=== PATIENT | female | born 1960 | race Caucasian/White ===

== ENCOUNTER 2024-07-25 09:45 | Outpatient (OUT) | payer BC, SELFPAY ==
--- NOTE | 2024-07-25 10:00 | CA_ITS ---
Patient Name: RADHA DRAKE MR#: [id number] : 1960 Exam Date: 07/25/2024 Ordering Doctor: DR Billy Skelton . ECHOCARDIOGRAM REPORT PROCEDURE: CA ECHO DOPPLER COMPLETE INDICATIONS: Pulmonary hypertension COMPARISON: None. DESCRIPTION: COMPLETE ECHOCARDIOGRAM Real-time transthoracic echocardiography with 2D, M-mode, spectral and color flow Doppler performed. QUALITY: Technical quality was good. LEFT VENTRICLE: Mild dilatation. Mild concentric left ventricular hypertrophy. Normal systolic function. LV EF: Normal left ventricular ejection fraction, (>55%). DIASTOLIC: Grade II diastolic dysfunction. ATRIAL SEPTUM: Visually appears intact. LEFT ATRIUM: Mild chamber dilatation. RIGHT ATRIUM: Normal chamber size. RIGHT VENTRICLE: Mild chamber dilatation. Normal right ventricular systolic function. TRICUSPID VALVE: Normal mobility and thickness. No stenosis with trivial regurgitation. Doppler studies reveal mildly (35-45) elevated right sided pressures. RVSP 43 mmHg MITRAL VALVE: Normal mobility and thickness. No evidence of mitral valve stenosis. There is no mitral annular calcification. Trivial mitral regurgitation. AORTIC VALVE: Normal trileaflet appearance. Thickened aortic valve. Normal leaflet mobility. No evidence of aortic valve stenosis. No aortic regurgitation. AORTIC ROOT: Normal diameter and appearance. Ascending aorta is normal in size. PULMONIC VALVE: Normal thickness and mobility. No stenosis. Trivial regurgitation. PERICARDIUM: No evidence of pericardial effusion. IVC: Collapses with inspirations. IVC is normal in size. PLEURA: CONCLUSION: 1. Mild concentric left ventricular hypertrophy with normal systolic function. LVEF is estimated at 55 to 60%. 2. Mildly dilated right ventricle with normal systolic function. 3. Grade 2 diastolic dysfunction. 4. No significant valvular dysfunction. 5. Mildly elevated right-sided pressures. RVSP is 43 mmHg. 6. No pericardial effusion. Adult Echocardiography Procedure Report Left Ventricle LVEDD (3.7 - 5.6 cm): 5.36 cm LVESD (2.2 - 4.0 cm): 3.90 cm LVIVS thickness (0.6 - 1.2 cm): 1.22 cm LVPW thickness (0.5 - 1.0 cm): 1.16 cm e': 0.05 m/s E - e': 10.56 LVOT Max Gradient: 1.63 mm[Hg] LVOT Area (cm2): 0.64 m/s Peak Velocity (LVOT): 0.64 m/s Mean Velocity (LVOT): 0.43 m/s LVOT Diameter 2.61 cm Left Atrium LA Volume Index (2D A2C): 33.72 ml/m2 Left Atrium Systolic Dimension: 4.45 cm Mitral Valve MV E to A Ratio: 0.99 Mitral Valve A-Wave Peak Velocity: 0.50 m/s Mitral Valve E-Wave Peak Velocity: 0.49 m/s Right Ventricle Aorta AO Root Diam: 3.65 cm Ascending Ao Diam: 2.88 cm Aortic Valve AoV Area (Peak James): 4.04 cm2, 4.04 cm2 AoV Area (VTI): 4.10 cm2, 4.10 cm2 Peak Velocity(Antegrade Flow): 0.84 m/s Peak Gradient(Antegrade Flow): 2.84 mm[Hg] Mean Velocity(Antegrade Flow): 0.56 m/s Mean Gradient(Antegrade Flow): 1.44 mm[Hg] Velocity Time Integral: 19.86 cm Tricuspid Valve Peak Velocity (Regurgitant Flow): 2.54 m/s, 3.16 m/s Pulmonic Valve Mean Gradient: 0.79 mm[Hg] Mean Velocity: 0.43 m/s Peak Velocity: 0.54 m/s, 0.56 m/s Peak Gradient: 1.25 mm[Hg], 1.16 mm[Hg] Right Atrium Right Atrium Systolic Pressure: 36.02 ml, 36.02 ml Dictated by: Nilo Lucero M.D. on 07/26/2024 at 09:33 Approved by: Nilo Lucero M.D. on 07/26/2024 at 09:36
--- NOTE | 2024-07-25 10:38 | US_ITS ---
The [address] [address] Patient Name: RADHA DRAKE MRN: [id number] date: 1960 Sex: F Assigned Patient Location: CARD Current Patient Location: CARD Accession/Order Number: [id number] Exam Date: 07/25/2024 10:40 Report Date: 07/26/2024 13:01 At the request of: JAMES MARK Procedure: US thyroid EXAMINATION: US thyroid HISTORY: Thyroid Nodule COMPARISON: No relevant comparison available. FINDINGS: RIGHT LOBE: Slightly heterogeneous echotexture. Contains a 7 mm TR 3 nodule within superior pole and a 15 mm TR 2 nodule within inferior pole. Lobe size: 3.6 x 1.5 x 1.8 cm LEFT LOBE: Contains an 8 mm TR 3 nodule. Lobe size: 3.3 x 1.2 x 1.3 cm ISTHMUS: Normal size and echotexture. Thickness: 3 mm US/US thyroid IMPRESSION: 1. Small TR 3 nodule within the right lobe (7 mm) and left lobe (8 mm). No additional follow-up recommended at this time. TR3 (mildly suspicious): > 1.5 cm, follow-up ultrasound in 1, 3, and 5 years. > 2.5 cm, fine needle aspiration. TI-RADS 2: Benign nodules. Noticeably benign pattern (0% risk of malignancy) Electronically authenticated by: PRIETO SINGER Date: 07/26/2024 13:01
[2024-07-25 11:08] LABS: Basophils Absolute Auto 0.1 10^3/uL (0.0-0.1); Basophils Percent Auto 1.7 % (0.2-2.0); Eosinophils Absolute Auto 0.3 10^3/uL (0.0-0.7); Hematocrit 43.7 % (36.0-48.0); Hemoglobin 14.4 g/dL (12.0-16.0); Immature Granulocytes Abs Auto 0.01 10^3/uL (0.00-0.03); Immature Granulocytes Pct Auto 0.2 % (0.0-0.5); Lymphocytes Absolute Auto 1.2 10^3/uL (1.2-3.8); Lymphocytes Percent Auto 25.4 % (20.5-60.0); Mean Corpuscular Hemoglobin 32.6 pg (26.7-34.0); Mean Corpuscular Volume 98.9 fL (81.0-99.0); Mean Platelet Volume 9.8 fL (9.5-13.5); Monocytes Absolute Auto 0.6 10^3/uL (0.3-0.8); Monocytes Percent Auto 13.6 % (1.7-12.0); Neutrophils Absolute Auto 2.5 10^3/uL (1.4-6.5); Neutrophils Percent Auto 53.1 % (43.0-75.0); Platelet Count 284 10^3/uL (150-450); Red Blood Count 4.42 10^6/uL (4.20-5.40); White Blood Count 4.6 10^3/uL (4.0-11.0)
[2024-07-25 11:42] LABS: Alanine Aminotransferase 51 U/L (14-59); Albumin Level 3.5 g/dL (3.4-5.0); Alkaline Phosphatase 57 U/L (46-116); Anion Gap 11.6; Aspartate Amino Transferase 31 U/L (15-37); BUN Creatinine Ratio 6.8; Bilirubin Direct 0.1 mg/dL (0.0-0.2); Bilirubin Total 0.4 mg/dL (0.2-1.0); Calcium 9.4 mg/dL (8.5-10.1); Carbon Dioxide 31.5 mmol/L (21.0-32.0); Chloride 106 mmol/L (98-107); Chol HDL Ratio 3.6; Cholesterol 265 mg/dL (<=200); Estimated GFR (African America >60 (>=60 mL/min/1.73m^2); Estimated GFR (Non-African Ame >60 (>=60 mL/min/1.73m^2); Globulin 3.6 g/dL; Glucose 88 mg/dL (74-106); HDL Cholesterol 73 mg/dL (40-60); Potassium 4.1 mmol/L (3.5-5.1); Sodium 145 mmol/L (136-145); Thyroid Stimulating Hormone 1.872 uIU/mL (0.358-3.740); Total Protein 7.1 g/dL (6.4-8.2); Triglycerides 147 mg/dL (<=150); VLDL CHOLESTEROL 29.4 mg/dL
[2024-07-25 11:48] LABS: Estimated Average Glucose 105 mg/dL; Glycohemoglobin A1C 5.3 % (4.5-6.2)
== END 2024-07-25 09:46 | disposition home or self-care (01) ==
LOC: CARD 09:50
PROVIDERS: PCP Family Medicine; Visit Provider Family Medicine
DX: Z00.00 Encounter for general adult medical examination without abnormal findings (principal); I27.20 Pulmonary hypertension, unspecified; E04.1 Nontoxic single thyroid nodule
CPT/HCPCS: 36415; 76536; 80048; 80061; 80076; 83036; 84443; 85025; 93306

== ENCOUNTER 2024-10-04 10:05 | Outpatient (OUT) | payer BC, SELFPAY ==
--- NOTE | 2024-10-04 | MM_ITS ---
Patient Name: RADHA DRAKE MR#: [id number] : 1960 Exam Date: 10/04/2024 Ordering Doctor: DR Billy Skelton . RADIOLOGY REPORT PROCEDURE: MM TOMOSYNTHESIS SCREENING BI COMPARISON: MM TOMOSYNTHESIS SCREENING BI, 01/09/2020. MM TOMOSYNTHESIS SCREENING BI, 06/07/2017. MM TOMOSYNTHESIS SCREENING BI, 02/13/2012. INDICATIONS: SCREENING Calculator Name NCI Breast Cancer Risk Assessment Tool 5 Year Breast Cancer Risk 1.50% Lifetime Breast Cancer Risk 6.80% Personal Breast Cancer No Personal Ovarian Cancer No Treatments None Family Cancers None LOCATION: [facility] BREAST COMPOSITION: There are scattered areas of fibroglandular density. FINDINGS: DIAGNOSTIC CATEGORY 1--NEGATIVE. RIGHT BREAST: No significant suspicious finding. LEFT BREAST: No significant suspicious finding. RECOMMENDATIONS: ROUTINE MAMMOGRAM AND CLINICAL EVALUATION IN 12 MONTHS. PLEASE NOTE: A NORMAL MAMMOGRAM DOES NOT EXCLUDE THE POSSIBILITY OF BREAST CANCER. A CLINICALLY SUSPICIOUS PALPABLE LUMP SHOULD BE BIOPSIED. Dictated by: Shadi Marin DO on 10/04/2024 at 16:02 Approved by: Shadi Marin DO on 10/04/2024 at 16:09
--- OUTSIDE RECORDS SUMMARY | 2024-10-04 10:20 | XMS_ITS | CCD ---
Author Organization [facility] Care Team Providers Care Devil Tender Name Role Phone Unavailable Primary Care Provider Unavailabl e MATTHEW, LINETTE Referring Unavailable MATTHEW, LINETTE Referring Unavailable MATTHEW, LINETTE Referring Unavailable MATTHEW, LINETTE Referring Unavailable MATTHEW, LINETTE Referring Unavailable MATTHEW, LINETTE Referring Unavailable MATTHEW, LINETTE Referring Unavailable MATTHEW, LINETTE Referring Unavailable MATTHEW, LINETTE Referring Unavailable MATTHEW, LINETTE Referring Unavailable MD MORRIS HOUSTON Attending BILLY Luz Primary Care Unavailabl e NADEREBILLY Payne Primary Care Unavailabl e BILLY MARK Consulting UnavailMD MORRIS Dubose Attending Panfilo hunt MISC, DR CONTRERAS Admitting Unavailable MISC, DR CONTRERAS Attending Unavailable DEEDEE, DR BILLY Painter Primary Care Unavailable VALEREICLIF MADRID Admitting Unavailable CLIF PADILLA Attending Unavailable DR BILLY MARK Primary Care Unavailable CLIF PDAILLA Consulting Unavailable CLIF PADILLA Admitting Unavailable VALERIECLIF MADRID Attending Unavailable DEEDEE, DR BILLY Paniter Primary Care Unavailable VALERIECLIF MADRID Consulting Unavailable Unavailable Primary Care Provider UnavailTEVIN Jimenez Attending Unavailable BILLY MARK Primary Care Unavailable Wilner Nolasco Attending Unavailable Wilner Nolasco Admitting Unavailable Elver Valentine Primary Care Unavailable Billy Mark MD Primary Care Provider BILLY MARK Attending Unavailable ELIAS PUTON Attending Unavailable ELIAS UPTON Attending Unavailable BILLY MARK Attending Unavailable Allergies Allergy Classification Reported Allergen(s) Allergy Type Date of Onset Reaction(s) Facility (1 source) Penicillin; Translations: [penicillin] Drug Allergy [facility] Repository (1 source) Sulfonamides (Antibiotic); Translations: [sulfa drugs] Propensity to adverse reactions to drug (disorder) [facility] Repository (12 sources) Penicillin G; Translations: [PENICILLIN G] Drug Allergy 4 Rash [facility] Work Phone: (11 sources) Sulfonamides (Antibiotic) Drug Intolerance 4 Rash, Unknown [facility] (2 sources) Sulfonamides (Antibiotic); Translations: [SULFA (SULFONAMIDE ANTIBIOTICS)] Propensity to adverse reactions to drug (disorder) 4 [facility] (1 source) Penicillins Drug allergy (disorder) 4 [facility] Repository Medications Current Medications Medication Drug Class(es) Dates Sig (Normalized) Sig (Original) hydroCHLOROthiazide 12.5 mg / losartan potassium 50 mg oral tablet (2 sources) Thiazide Diuretic, Angiotensin 2 Receptor Enoc Start: 08-21-2024 take 1 tablet by mouth once daily losartan-hydroCHL OROthiazide (Hyzaar) 50-12.5 MG tablet Indications: Benign essential hypertension (CMS/HCC) Take 1 tablet by mouth Daily 30 tablet 5 08/21/2024 Active Start: 08-21-2024 take 1 tablet by bita th once daily losartan-hydroCHLOROthiazide (Hyzaar) 50-12.5 MG tablet Indications: Benign essential hypertension (CMS/HCC) Take 1 tablet by mouth Daily 30 tablet 5 08/21/2024 Active losartan potassium 25 mg oral tablet (6 sources) Angiotensin 2 Receptor Enoc Start: 07-18-2024 End: 08-21-2024 take 1 tablet by mouth once daily losartan (Cozaar) 25 MG tablet Indications: Benign essential hypertension (CMS/HCC) Take 1 tablet (25 mg) by mouth Daily 30 tablet 5 07/18/2024 08/21/2024 Discontinued Completed/Discontinued Medications Medication Drug Class(es) Dates Sig (Normalized) Sig (Original) fluorouracil 50 mg/ml topical cream (7 sources) Nucleoside Metabolic Inhibitor Start: 09-04-2023 End: 07-18-2024 fluorouracil (Efudex) 5 % cream Indications: Actinic keratosis Apply to directed areas on the Forehead, nose, temples, and cheeks twice a day x 14 days. Dispense 30 day supply but only use for 14 days. 40 g 09/04/2023 07/18/2024 Discontinued metroNIDAZOLE 7.5 mg/ml topical cream (5 sources) Nitroimidazole Antimicrobial Start: 04-22-2024 End: 07-18-2024 metroNIDAZOLE (Metrocream) 0.75 % cream Indications: Other rosacea Apply thin layer to face once daily 45 g 11 04/22/2024 07/18/2024 Discontinued Problems Active Problems Problem Classification Problem Date Documented Da te Episodic/Chronic Anxiety disorders (12 sources) Acute stress reaction; Translations: [Anxiety] Onset: 06-29-2024 07-18-2024 Chronic Congestive heart failure; nonhypertensive (5 sources) Chronic heart failure co-occurrent with normal ejection fraction; Translations: [Chronic diastolic (congestive) heart failure] Onset: 07-26-2024 08-21-2024 Chronic Essential hypertension (12 sources) Essential (primary) hypertension; Translations: [Hypertensive disorder] Onset: 06-29-2024 07-18-2024 Chronic Mood disorders (1 source) Mood disorders; Translations: [Depression, unspecified] Onset: 07-06-2024 Osteoarthritis (1 source) Primary osteoarthritis, left shoulder; Translations: [PRIMARY OSTEOARTHRITIS LT SHOULDER] Onset: 10-25-2021 Chronic Other circulatory disease (1 source) Elevated blood-pressure reading, without diagnosis of hypertension; Translations: [Elevated blood-pressure reading, without diagnosis of hypertension] Onset: 06-29-2024 Episodic Other inflammatory condition of skin (2 sources) Rosacea; Translations: [Other rosacea] 04-22-2024 Chronic Other nutritional; endocrine; and metabolic disorders (1 source) Hypomagnesemia; Translations: [Hypomagnesemia] Onset: 06-29-2024 Chronic Other nutritional; endocrine; and metabolic disorders (1 source) Obesity; Translations: [Obesity, unspecified] Onset: 07-18-2024 07-18-2024 Chronic Other nutritional; endocrine; and metabolic disorders (10 sources) Obesity caused by energy imbalance; Translations: [Class 1 obesity due to excess calories without serious comorbidity with body mass index (BMI) of 32.0 to 32.9 in adult] Onset: 07-18-2024 07-18-2024 Chronic Other screening for suspected conditions (not mental disorders or infectious disease) (4 sources) Patient encounter status; Translations: [Encounter for screening mammogram for malignant neoplasm of breast] 08-21-2024 Episodic Other skin disorders (2 sources) Inflamed seborrheic keratosis; Translations: [Inflamed seborrheic keratosis] 04-22-2024 Episodic Other skin disorders (2 sources) Post-inflammatory hyperpigmentation; Translations: [Postinflammatory hyperpigmentation] 04-22-2024 Episodic Pulmonary heart disease (12 sources) Pulmonary hypertension; Translations: [Pulmonary hypertension, unspecified] Onset: 07-18-2024 07-18-2024 Chronic Thyroid disorders (8 sources) Thyroid nodule; Translations: [Nontoxic single thyroid nodule] Onset: 07-18-2024 07-18-2024 Chronic Unclassified (2 sources) CONTACT W/AND (SUSP) EXPOS COVID-19; Translations: [CONTACT W/AND (SUSP) EXPOS COVID-19] Onset: 03-15-2022 Unclassified (1 source) High Blood Pressure, Rapid Heart Beat Onset: 06-29-2024 Urinary tract infections (1 source) Acute cystitis with hematuria; Translations: [Acute cystitis with hematuria] Onset: 06-29-2024 Episodic Viral infection (1 source) COVID-19; Translations: [COVID-19] Onset: 03-15-2022 Past or Other Problems Problem Classification Problem Date Documented Da te Episodic/Chronic Malaise and fatigue (1 source) Weakness; Translations: [WEAKNESS] Onset: 10-25-2021 Episodic Other connective tissue disease (4 sources) Unspecified rotator cuff tear or rupture of left shoulder, not specified as traumatic; Translations: [UNS ROT CUFF TEAR/RUPT LT SHOULDER] Onset: 08-03-2021 Episodic Other connective tissue disease (1 source) Abnormal posture; Translations: [ABNORMAL POSTURE] Onset: 10-25-2021 Episodic Other non-traumatic joint disorders (1 source) Pain in left shoulder; Translations: [PAIN IN LEFT SHOULDER] Onset: 10-25-2021 Episodic Unclassified (1 source) CONTACT W/AND (SUSP) EXPOS COVID-19; Translations: [CONTACT W/AND (SUSP) EXPOS COVID-19] Onset: 03-14-2022 Results Test Name Value Interpretation Reference Range Facility ALL CBC WITH AUTO DIFFon BASOPHILS ABSOLUTE AUTO 0.1 [facility] Basophils/100 WBC (Bld) 1.7 % 0.2 - 2.0 % [facility] Eosinophils/100 WBC (Bld) 6 % 0.9 - 7.0 % [facility] Erythrocyte distribution width (RBC) [Ratio] 12 % 11.0 - 15.0 % [facility] Hematocrit (Bld) [Volume fraction] 43.7 % 36.0 - 48.0 % [facility] Hemoglobin (Bld) [Mass/Vol] 14.4 g/dL 12.0 - 16.0 g/dL [facility] IMMATURE GRANULOCYTES ABS AUTO 0.01 [facility] Immature granulocytes/100 WBC (Bld) 0.2 % 0.0 - 0.5 % [facility] Interpretation and review of laboratory results Abnormal [facility] LYMPHOCYTES ABSOLUTE AUTO 1.2 [facility] Lymphocytes/100 WBC (Bld) 25.4 % 20.5 - 60.0 % [facility] MCH (RBC) [Entitic mass] 32.6 pg 26.7 - 34.0 pg [facility] MCHC (RBC) [Mass/Vol] 33 g/dL 29.9 - 35.2 g/dL [facility] MCV (RBC) [Entitic vol] 98.9 fL 81.0 - 99.0 fL [facility] MONOCYTES ABSOLUTE AUTO 0.6 [facility] Monocytes/100 WBC (Bld) 13.6 % High 1.7 - 12.0 % [facility] NEUTROPHILS ABSOLUTE AUTO 2.5 [facility] Neutrophils/100 WBC (Bld) 53.1 % 43.0 - 75.0 % [facility] Platelet mean volume (Bld) [Entitic vol] 9.8 fL 9.5 - 13.5 fL [facility] TBH EO # 0.3 [facility] PLT 284 [facility] TB RBC 4.42 [facility] WBC 4.6 [facility] Complete Blood Count Auto Di ffon 07-06-2024 Basophils (Bld) [#/Vol] 0.0 10*3/uL Normal 0.0-0.2 [facility] Comment on above: Result Comment: PERF ORMED BY: [place] [address] PATHOLOGIST MAINTENANCE INSPECTOR CORINNE PEREZ M.D. Performed By: #### C MP, MG, ETOH, CBC #### [address] Basophils/100 WBC (Bld) 0.6 % Normal . [facility] Comment on above: Performed By: #### C MP, MG, ETOH, CBC #### [address] Eosinophils (Bld) [#/Vol] 0.0 10*3/uL Normal 0.0-0.45 [facility] Comment on above: Performed By: #### C MP, MG, ETOH, CBC #### [address] Eosinophils/100 WBC (Bld) 0.1 % Normal . [facility] Comment on above: Performed By: #### C MP, MG, ETOH, CBC #### [address] Erythrocyte distribution width (RBC) [Ratio] 13.9 % Normal 11.9-15.3 [facility] Comment on above: Performed By: #### C MP, MG, ETOH, CBC #### [address] Hematocrit (Bld) [Volume fraction] 44.0 % Normal 34.0-46.4 [facility] Comment on above: Performed By: #### C MP, MG, ETOH, CBC #### [address] Hemoglobin (Bld) [Mass/Vol] 14.8 g/dL Normal 11.8-15.4 [facility] Comment on above: Performed By: #### C MP, MG, ETOH, CBC #### [address] Lymphocytes (Bld) [#/Vol] 0.7 10*3/uL Low 1.00-4.8 [facility] Comment on above: Performed By: #### C MP, MG, ETOH, CBC #### [address] Lymphocytes/100 WBC (Bld) 12.1 % Normal . [facility] Comment on above: Performed By: #### C MP, MG, ETOH, CBC #### [address] MCH (RBC) [Entitic mass] 33.7 pg Normal 24.7-34.3 [facility] Comment on above: Performed By: #### C MP, MG, ETOH, CBC #### [address] MCV (RBC) [Entitic vol] 100.5 fL High 80-100 [facility] Comment on above: Performed By: #### C MP, MG, ETOH, CBC #### [address] Mean Corpuscular HGB Conc 33.6 g/dL Normal 32.0-35.0 [facility] Comment on above: Performed By: #### C MP, MG, ETOH, CBC #### [address] Monocytes (Bld) [#/Vol] 0.3 10*3/uL Normal 0.0-0.8 [facility] Comment on above: Performed By: #### C MP, MG, ETOH, CBC #### [address] Monocytes/100 WBC (Bld) 14.53 % Normal 0.00-20.00 [facility] Comment on above: Performed By: #### C MP, MG, ETOH, CBC #### [address] Monocytes/100 WBC (Bld) 5.6 % Normal . [facility] Comment on above: Performed By: #### C MP, MG, ETOH, CBC #### [address] Neutrophils (Bld) [#/Vol] 4.6 10*3/uL Normal 1.8-7.7 [facility] Comment on above: Performed By: #### C MP, MG, ETOH, CBC #### [address] Neutrophils/100 WBC (Bld) 81.6 % Normal . [facility] Comment on above: Performed By: #### C MP, MG, ETOH, CBC #### [address] NRBC% 0.0 /100{WBC} Normal 0-0.5 [facility] Comment on above: Performed By: #### C MP, MG, ETOH, CBC #### [address] Platelet mean volume (Bld) [Entitic vol] 7.3 fL Normal 6.3-10.7 [facility] Comment on above: Performed By: #### C MP, MG, ETOH, CBC #### [address] Platelets (Bld) [#/Vol] 167 10*3/uL Normal 150-450 [facility] Comment on above: Performed By: #### C MP, MG, ETOH, CBC #### [address] RBC (Bld) [#/Vol] 4.38 10*6/uL Normal 3.60-5.00 [facility] Comment on above: Performed By: #### C MP, MG, ETOH, CBC #### [address] WBC (Bld) [#/Vol] 5.7 10*3/uL Normal 3.8-11.6 [facility] Comment on above: Performed By: #### C MP, MG, ETOH, CBC #### [address] Comprehensive Metabolic Pane rg 07-06-2024 Albumin [Mass/Vol] 4.3 g/dL Normal 3.5-5.7 [facility] Comment on above: Performed By: #### C MP, MG, ETOH, CBC #### [facility] [address] Albumin/Globulin [Mass ratio] 1.6 {ratio} Normal [facility] Comment on above: Performed By: #### C MP, MG, ETOH, CBC #### [facility] [address] ALP [Catalytic activity/Vol] 55 U/L Normal 34-104 [facility] Comment on above: Performed By: #### C MP, MG, ETOH, CBC #### [facility] [address] ALT [Catalytic activity/Vol] 216 U/L High 7-52 [facility] Comment on above: Performed By: #### C MP, MG, ETOH, CBC #### [facility] [address] Anion gap [Moles/Vol] 21.7 mmol/L High 6.0-15.0 [facility] Comment on above: Performed By: #### C MP, MG, ETOH, CBC #### [address] AST [Catalytic activity/Vol] 348 U/L High 13-39 [facility] Comment on above: Performed By: #### C MP, MG, ETOH, CBC #### [address] Bilirubin [Mass/Vol] 0.6 mg/dL Normal 0.3-1.0 [facility] Comment on above: Performed By: #### C MP, MG, ETOH, CBC #### [facility] [address] [place] [address] [place] Calcium [Mass/Vol] 8.5 mg/dL Low 8.6-10.3 [facility] Comment on above: Performed By: #### C MP, MG, ETOH, CBC #### [facility] [address] Chloride [Moles/Vol] 97 mmol/L Low 98-107 [facility] Comment on above: Performed By: #### C MP, MG, ETOH, CBC #### [facility] [address] CO2 [Moles/Vol] 23.4 mmol/L Normal 21.0-31.0 [facility] Comment on above: Performed By: #### C MP, MG, ETOH, CBC #### [address] Creatinine [Mass/Vol] 0.74 mg/dL Normal 0.60-1.20 [facility] Comment on above: Performed By: #### C MP, MG, ETOH, CBC #### [place] [address] [place] Creatinine Clr Calc Pharmacy 82.61 Normal [facility] Comment on above: Performed By: #### C MP, MG, ETOH, CBC #### [place] [address] [place] GFR/1.73 sq M.predicted MDRD (S/P/Bld) [Vol rate/Area] mL/min/{1.73_m2} Normal [facility] Comment on above: Performed By: #### C MP, MG, ETOH, CBC #### [address] Globulin (S) [Mass/Vol] 2.7 g/dL Normal [facility] Comment on above: Performed By: #### C MP, MG, ETOH, CBC #### [address] Glucose [Mass/Vol] 79 mg/dL Normal 70-100 [facility] Comment on above: Result Comment: [place] Glucose Reference Range is dependent on time and content of last meal. Glucose of more than 200 mg/dL in a nonstressed, ambulatory subject supports the diagnosis of Diabetes Mellitus. ADA recommended reference range Performed By: #### C MP, MG, ETOH, CBC #### [address] Potassium [Moles/Vol] 4.1 mmol/L Normal 3.5-5.1 [facility] Comment on above: Performed By: #### C MP, MG, ETOH, CBC #### [facility] [address] [place] [address] [place] Protein [Mass/Vol] 7.0 g/dL Normal 6.4-8.9 [facility] Comment on above: Performed By: #### C MP, MG, ETOH, CBC #### [facility] [address] Sodium [Moles/Vol] 138 mmol/L Normal 136-145 [facility] Comment on above: Performed By: #### C MP, MG, ETOH, CBC #### [facility] [address] Urea nitrogen [Mass/Vol] 16 mg/dL Normal 7-25 [facility] Comment on above: Performed By: #### C MP, MG, ETOH, CBC #### [place] [address] [place] Dipstick and Microscopicon 1 09-06-2023 Appearance (U) Clear Normal Clear [facility] Comment on above: Order Comment: Name Collection Type:: Clean-Voided Midstream Performed By: #### A DDONUAPLUS, URDS #### [place] [address] [place] Bacteria,Urine Rare Normal None Seen [facility] Comment on above: Order Comment: Name Collection Type:: Clean-Voided Midstream Performed By: #### A DDONUAPLUS, URDS #### [place] [address] [place] Bilirubin,Urine Negative Normal Negative [facility] Comment on above: Order Comment: Name Collection Type:: Clean-Voided Midstream Performed By: #### A DDONUAPLUS, URDS #### [place] [address] [place] Color (U) Light-Yellow Normal Yellow [facility] Comment on above: Order Comment: Name Collection Type:: Clean-Voided Midstream Performed By: #### A DDONUAPLUS, URDS #### [place] [address] [place] Glucose Ql (U) Normal Normal Normal [facility] Comment on above: Order Comment: Name Collection Type:: Clean-Voided Midstream Performed By: #### A DDONUAPLUS, URDS #### [place] [address] [place] Hyaline Casts,Urine 20 [LPF] High 0-8 [facility] Comment on above: Order Comment: Name Collection Type:: Clean-Voided Midstream Performed By: #### A DDONUAPLUS, URDS #### [place] [address] [place] Ketones Ql (U) 2+ High Negative [facility] Comment on above: Order Comment: Name Collection Type:: Clean-Voided Midstream Performed By: #### A DDONUAPLUS, URDS #### [address] Leukocyte esterase Test strip Ql (U) Negative Normal Negative [facility] Comment on above: Order Comment: Name Collection Type:: Clean-Voided Midstream Performed By: #### A DDONUAPLUS, URDS #### [place] [address] [place] Mucus,Urine Rare Normal [facility] Comment on above: Order Comment: Name Collection Type:: Clean-Voided Midstream Result Comment: PERF ORMED BY: [place] [address] PATHOLOGIST MAINTENANCE INSPECTOR CORINNE PEREZ M.D. Performed By: #### A DDONUAPLUS, URDS #### [place] [address] [place] Nitrite,Urine Negative Normal Negative [facility] Comment on above: Order Comment: Name Collection Type:: Clean-Voided Midstream Performed By: #### A DDONUAPLUS, URDS #### [place] [address] [place] Occult Blood,Urine 1+ High Negative [facility] Comment on above: Order Comment: Name Collection Type:: Clean-Voided Midstream Result Comment: PERF ORMED BY: [place] [address] PATHOLOGIST MAINTENANCE INSPECTOR CORNINE PEREZ M.D. Performed By: #### A DDONUAPLUS, URDS #### [address] Other Casts,Urine 5 [LPF] High None Seen [facility] Comment on above: Order Comment: Name Collection Type:: Clean-Voided Midstream Performed By: #### A DDONUAPLUS, URDS #### [address] pH (U) 5.5 [pH] Normal 5.0-9.0 [facility] Comment on above: Order Comment: Name Collection Type:: Clean-Voided Midstream Performed By: #### A DDONUAPLUS, URDS #### [address] Protein,Urine Trace High Negative [facility] Comment on above: Order Comment: Name Collection Type:: Clean-Voided Midstream Performed By: #### A DDONUAPLUS, URDS #### [address] RBC,Urine 1 [HPF] Normal 0-4 [facility] Comment on above: Order Comment: Name Collection Type:: Clean-Voided Midstream Performed By: #### A DDONUAPLUS, URDS #### [address] Specificy [place],Urine 1.009 Normal 1.001-1.03 0 [facility] Comment on above: Order Comment: Name Collection Type:: Clean-Voided Midstream Performed By: #### A DDONUAPLUS, URDS #### [place] [address] [place] Squamous Epithelial Cell,Urine 1 [HPF] Normal 0-2 [facility] Comment on above: Order Comment: Name Collection Type:: Clean-Voided Midstream Performed By: #### A DDONUAPLUS, URDS #### [address] Urobilinogen,Urine Normal Normal Normal [facility] Comment on above: Order Comment: Name Collection Type:: Clean-Voided Midstream Performed By: #### A DDONUAPLUS, URDS #### [address] WBC,Urine 1 [HPF] Normal 0-4 [facility] Comment on above: Order Comment: Name Collection Type:: Clean-Voided Midstream Performed By: #### A DDONUAPLUS, URDS #### [address] Drug Screen,Urineon 07-06-20 24 Amphetamine Screen,Urine Negative Normal Negative [facility] Comment on above: Performed By: #### A DDONUAPLUS, URDS #### [address] Barbiturate Screen,Urine Negative Normal Negative [facility] Comment on above: Performed By: #### A DDONUAPLUS, URDS #### [address] Benzodiazepines Screen,Urine Negative Normal Negative [facility] Comment on above: Performed By: #### A DDONUAPLUS, URDS #### [address] Cannabinoid Screen,Urine Negative Normal Negative [facility] Comment on above: Result Comment: Thes e are unconfirmed results and should not be used for legal purposes. Drug Cut-Off Concentration: AMPH 1000 ng/mL RODRICK 200 ng/mL CYNTHIA 200 ng/mL COCM 300 ng/mL OP 300 ng/mL PCP 25 ng/mL THC 20 ng/mL PERFORMED BY: [place] [address] PATHOLOGIST MAINTENANCE INSPECTOR CORINNE PEREZ M.D. Performed By: #### A DDONUAPLUS, URDS #### [address] Cocaine Screen,Urine Negative Normal Negative [facility] Comment on above: Performed By: #### A DDONUAPLUS, URDS #### [address] Opiate Screen,Urine Negative Normal Negative [facility] Comment on above: Performed By: #### A DDONUAPLUS, URDS #### [address] Phencyclidine Screen,Urine Negative Normal Negative [facility] Comment on above: Performed By: #### A DDONUAPLUS, URDS #### [address] Ethyl Alcohol Profileon Ethanol [Mass/Vol] 273 mg/dL Normal [facility] Comment on above: Performed By: #### C MP, MG, ETOH, CBC #### [address] Percent Ethanol 0.273 % Normal [facility] Comment on above: Result Comment: PERF ORMED BY: [place] [address] PATHOLOGIST MAINTENANCE INSPECTOR CORINNE PEREZ M.D. Performed By: #### C MP, MG, ETOH, CBC #### [address] Magnesiumon 07-06-2024 Magnesium [Mass/Vol] 1.8 mg/dL Low 1.9-2.7 [facility] Comment on above: Result Comment: PERF ORMED BY: [place] [address] PATHOLOGIST MAINTENANCE INSPECTOR CORINNE PEREZ M.D. Performed By: #### C MP, MG, ETOH, CBC #### [address] BASIC METABOLIC PANLon 06-29 Anion gap [Moles/Vol] 14 mmol/L Normal 5-15 [facility] Comment on above: Performed By: #### C BCA, 07717-2, PINR, 08112-2, BMP, 28677-1, 35452-6, THYR #### [facility] ([id number]) [address] [place] [address], [place] [address] Calcium [Mass/Vol] 9.4 mg/dL Normal 8.5-10.5 [facility] Comment on above: Performed By: #### C BCA, 74650-8, PINR, 47561-8, BMP, 35939-5, 92952-9, THYR #### [facility] ([id number]) [address] [place] [address] 37294 Chloride [Moles/Vol] 96 mmol/L Low 98-109 [facility] Comment on above: Performed By: #### C BCA, 92820-2, PINR, 20287-2, BMP, 48673-4, 34529-5, THYR #### [facility] ([id number]) [address] [place] [address] 27058 CO2 [Moles/Vol] 25 mmol/L Normal 22-32 [facility] Comment on above: Performed By: #### C BCA, 12532-4, PINR, 85298-8, BMP, 29098-9, 01610-9, THYR #### [facility] ([id number]) [address] [place] [address] 65780 Creatinine [Mass/Vol] 0.93 mg/dL Normal 0.40-1.00 [facility] Comment on above: Result Comment: METH OD TRACEABLE TO IDMS STANDARD Performed By: #### C BCA, 48445-6, PINR, 61309-3, BMP, 04834-9, 43784-2, THYR #### [facility] ([id number]) [address] [place] [address] 07829 GFR/1.73 sq M.predicted among non-blacks MDRD (S/P/Bld) [Vol rate/Area] 69 mL/min/{1.73_m2} Normal >59 [facility] Comment on above: Result Comment: Reported eGFR is based on the CKD-EPI 2020 equation that does not use a race coefficient. Performed By: #### C BCA, 94677-9, PINR, 10501-5, BMP, 44477-0, 38719-6, THYR #### [facility] ([id number]) [address] [place] [address] 63187 Glucose [Mass/Vol] 204 mg/dL High 65-99 [facility] Comment on above: Performed By: #### C BCA, 47050-2, PINR, 89208-3, BMP, 70849-1, 67795-8, THYR #### [facility] ([id number]) [address] [place] [address] 42182 Potassium [Moles/Vol] 3.6 mmol/L Normal 3.5-5.0 [facility] Comment on above: Performed By: #### C BCA, 44045-0, PINR, 22183-9, BMP, 45957-0, 00492-6, THYR #### [facility] ([id number]) [address] [place] [address] 56785 Sodium [Moles/Vol] 135 mmol/L Normal 134-146 [facility] Comment on above: Performed By: #### C BCA, 03059-6, PINR, 30710-3, BMP, 58381-3, 13671-7, THYR #### [facility] ([id number]) [address] [place] [address] [place] [address] Urea nitrogen [Mass/Vol] 13 mg/dL Normal 5-27 [facility] Comment on above: Performed By: #### C BCA, 46867-8, PINR, 78027-5, BMP, 11318-0, 05602-5, THYR #### [facility] ([id number]) [address] [place] [address] 14985 CBC AND AUTO DIFFon 11-30-20 24 ABSOLUTE BASOPHIL 0.0 X10E9/L Normal 0.0-0.2 [facility] Comment on above: Performed By: #### C BCA, 93687-2, PINR, 37233-0, BMP, 61928-3, 92101-4, THYR #### [facility] ([id number]) [address] [place] [address] 62428 ABSOLUTE NEUTROPHIL 6.9 X10E9/L High 1.5-6.6 [facility] Comment on above: Performed By: #### C BCA, 48358-0, PINR, 32199-3, BMP, 78782-8, 88546-7, THYR #### [facility] ([id number]) [address] [place] [address] 52746 Basophils/100 WBC (Bld) 0.5 % Normal [facility] Comment on above: Performed By: #### C BCA, 61212-6, PINR, 74591-9, BMP, 15600-0, 41262-3, THYR #### [facility] ([id number]) [address] [place] [address] 35771 Eosinophils (Bld) [#/Vol] 0.0 10*3/uL Normal 0.0-0.4 [facility] Comment on above: Performed By: #### C BCA, 18327-0, PINR, 75120-7, BMP, 57930-3, 90295-0, THYR #### [facility] ([id number]) [address] [place] [address] 63620 Eosinophils/100 WBC (Bld) 0.1 % Normal [facility] Comment on above: Performed By: #### C BCA, 51811-4, PINR, 95507-0, BMP, 63592-6, 69878-3, THYR #### [facility] ([id number]) [address] [place] [address] 67139 Erythrocyte distribution width (RBC) [Ratio] 13.7 % Normal 11.5-15.0 [facility] Comment on above: Performed By: #### C BCA, 33602-9, PINR, 27876-7, BMP, 27609-1, 52551-7, THYR #### [facility] ([id number]) [address] [place] [address] 16169 Hematocrit (Bld) [Volume fraction] 42.8 % Normal 35-47 [facility] Comment on above: Performed By: #### C BCA, 01149-9, PINR, 31963-9, BMP, 41954-7, 94110-6, THYR #### [facility] ([id number]) [address] [place] [address] 76492 Hemoglobin (Bld) [Mass/Vol] 14.6 g/dL Normal 11.7-15.5 [facility] Comment on above: Performed By: #### C BCA, 69080-4, PINR, 83356-8, BMP, 16204-2, 20092-8, THYR #### [facility] ([id number]) [address] [place] [address] 45202 Lymphocytes (Bld) [#/Vol] 1.2 10*3/uL Normal 1.0-3.5 [facility] Comment on above: Performed By: #### C BCA, 63373-8, PINR, 58311-3, BMP, 62272-8, 16884-0, THYR #### [facility] ([id number]) [address] [place] [address] 89782 Lymphocytes/100 WBC (Bld) 14.1 % Normal [facility] Comment on above: Performed By: #### C BCA, 04521-7, PINR, 95605-5, BMP, 05116-6, 04831-3, THYR #### [facility] ([id number]) [address] [place] [address] 84575 MCH (RBC) [Entitic mass] 33.9 pg Normal 27-34 [facility] Comment on above: Performed By: #### C BCA, 36439-6, PINR, 52040-5, BMP, 84933-3, 73363-0, THYR #### [facility] ([id number]) [address] [place] [address] 19359 MCHC (RBC) [Mass/Vol] 34.2 g/dL Normal 32-36 [facility] Comment on above: Performed By: #### C BCA, 69201-3, PINR, 43188-3, BMP, 24914-7, 66354-5, THYR #### [facility] ([id number]) [address] [place] [address] 53674 MCV (RBC) [Entitic vol] 99 fL Normal 80-100 [facility] Comment on above: Performed By: #### C BCA, 24021-9, PINR, 50855-7, BMP, 05549-6, 76428-4, THYR #### [facility] ([id number]) [address] [place] [address] 71189 Monocytes (Bld) [#/Vol] 0.6 10*3/uL Normal 0-0.9 [facility] Comment on above: Performed By: #### C BCA, 97079-7, PINR, 98341-1, BMP, 04590-2, 26177-5, THYR #### [facility] ([id number]) [address] [place] [address] 32286 Monocytes/100 WBC (Bld) 6.6 % Normal [facility] Comment on above: Performed By: #### C BCA, 44487-0, PINR, 27593-5, BMP, 86725-8, 03221-2, THYR #### [facility] ([id number]) [address] [place] [address] 69792 Neutrophils/100 WBC (Bld) 78.7 % Normal [facility] Comment on above: Performed By: #### C BCA, 09981-4, PINR, 21853-4, BMP, 09341-3, 06476-4, THYR #### [facility] ([id number]) [address] [place] [address] 42763 Platelet mean volume (Bld) [Entitic vol] 8.2 fL Normal 7-12 [facility] Comment on above: Performed By: #### C BCA, 04847-6, PINR, 85824-9, BMP, 60791-1, 10305-7, THYR #### [facility] ([id number]) [address] [place] [address] 92126 Platelets (Bld) [#/Vol] 195 10*3/uL Normal 150-450 [facility] Comment on above: Performed By: #### C BCA, 84873-4, PINR, 75454-5, BMP, 70133-0, 88934-5, THYR #### [facility] ([id number]) [address] [place] [address] 82999 RBC COUNT 4.32 X10E12/L Normal 3.80-5.20 [facility] Comment on above: Performed By: #### C BCA, 05936-5, PINR, 51853-1, BMP, 96969-7, 05816-9, THYR #### [facility] ([id number]) [address] [place] [address] 09611 WBC (Bld) [#/Vol] 8.8 10*3/uL Normal 4.0-11.0 [facility] Comment on above: Performed By: #### C BCA, 67630-5, PINR, 38887-1, BMP, 65632-3, 86995-5, THYR #### [facility] ([id number]) [address] [place] [address]A CHESTon 06-29-[address] CTA CHEST Study: Contrast-enhanced CT of the chest dated 06/29/2024 6:28 PM. Indication: High blood pressure. Anxiety. Comparison: None . Technique: Multiple contiguous axial images of the chest were obtained from the thoracic inlet through the upper abdomen following the administration of nonionic contrast. Two-D coronal and sagittal reconstructions were performed. Advanced 3D post processing was performed at an independent work station to further evaluate the suspected abnormality of the vasculature All CT scans at this facility use dose modulation, iterative reconstruction, and/or weight based dosing when appropriate to reduce radiation dose to as low as reasonably achievable. Findings: Enlarged main pulmonary artery measuring up to 3.1 cm. No filling defects in the pulmonary arteries to suggest pulmonary embolism. The heart appears prominent in size. No pericardial effusion. Mild atheromatous calcifications the coronary arteries. However limited due to motion. No thoracic aortic aneurysm. 11 mm right thyroid nodule. Central airways are patent. No clinically significant pulmonary nodules, areas of airspace disease, pleural effusions or pneumothorax. Likely subsegmental trace lingular atelectatic change. Visualized upper abdomen is unremarkable. No acute or grossly suspicious osseous abnormality. Impression: 1. No evidence of pulmonary embolism. 2. Enlarged main pulmonary artery measuring up to 3.1 cm which can be seen in pulmonary hypertension. Finalized by Vince Garcia MD on 06/29/2024 6:47 PM Normal [facility] Fibrin D-dimer DDU (PPP) [Ma ss/Vol]on 06-29-2024 D DIMER 799 ng/mL DDU High <255 [facility] Comment on above: Result Comment: Results >=255ng/mL DDU: Results may be indicative of the presence of VTE. The use of the Wells score and further diagnostic tests should be considered. Elevated D-Dimer levels can also be associated with DIC, neoplasm, , trauma and liver disease. Elevated levels of rheumatoid factor may lead to an overestimation of the D-Dimer level. Performed By: #### C BCA, 06090-0, PINR, 60745-8, BMP, 83770-0, 88274-0, THYR #### [facility] ([id number]) [address] [place] [address], [place] [address] MAGNESIUMon 06-29-2024 Magnesium [Mass/Vol] 1.5 mg/dL Low 1.8-2.6 [facility] Comment on above: Performed By: #### C BCA, 45251-6, PINR, 85034-1, BMP, 61272-5, 06381-1, THYR #### [facility] ([id number]) [address] [place] [address], [place] [address] PROTIME AND INRon 06-29-2024 INR Coag (PPP) [Relative time] 0.9 {INR} Normal 0.8-1.1 [facility] Comment on above: Performed By: #### C BCA, 49064-9, PINR, 79409-0, BMP, 34255-6, 26561-3, THYR #### [facility] ([id number]) [address] [place] [address], [place] [address] PT Coag (PPP) [Time] 11.0 s Normal 9.8-13.2 [facility] Comment on above: Result Comment: NEW REFERENCE RANGE Performed By: #### C BCA, 49976-0, PINR, 26168-7, BMP, 13293-4, 10865-6, THYR #### [facility] ([id number]) [address] [place] [address], [place] [address] THYROID PROFILEon 06-29-2024 Free T4 [Mass/Vol] 0.84 ng/dL Normal 0.61-1.60 [facility] Comment on above: Performed By: #### C BCA, 94504-9, PINR, 74021-8, BMP, 93031-1, 11497-1, THYR #### [facility] ([id number]) [address] [place] [address], [place] [address] TSH 0.87 uIU/mL Normal 0.49-4.67 [facility] Comment on above: Performed By: #### C BCA, 93648-4, PINR, 20291-1, BMP, 27775-3, 68964-3, THYR #### [facility] ([id number]) [address] [place] [address] 82040 Troponin I.cardiac High sens itivity method [Mass/Vol]on 06-29-2024 1 HOUR TROP I, HIGH SENSITIVITY 10 ng/L Normal <16 [facility] Comment on above: Performed By: #### C BCA, 51506-3, PINR, 53142-5, BMP, 63239-7, 28458-9, THYR #### [facility] ([id number]) [address] [place] [address] 37421 TROPONIN I, HIGH SENSITIVITY 8 ng/L Normal <16 [facility] Comment on above: Performed By: #### C BCA, 82805-6, PINR, 47304-4, BMP, 08742-2, 07681-2, THYR #### [facility] ([id number]) [address] [place] [address] 31748 URINE CULTUREon 06-29-2024 Bacteria identified Cx Nom (U) CULTURE RESULTS 50,000 to 100,000 ORGANISMS/mL ESCHERICHIA COLI <10,000 ORGANISMS/mL NORMAL URO GENITAL MARIPOSA [ S = SUSCEPTIBLE R = RESISTANT I = INTERMEDIATE S-DO = Susceptible-dose dependent NS = Non-suscceptible NO = No Interpretation ] Organism: ESCHERICHIA COLI Antibiotic Interpretation DEWAYNE Status AMPICILLIN S 4 F AMP/SULBACTAM S <=2/1 F CEFAZOLIN S <=4 F CEFTRIAXONE S <=0.25 F CIPROFLOXACIN S <=0.25 F GENTAMICIN S <=1 F LEVOFLOXACIN S <=0.12 F NITROFURANTOIN S 32 F PIPERACIL/TAZOBACTAM S <=4 F TOBRAMYCIN S <=1 F TRIMETH/SULFAMETHOXAZOLE S <=1/19 F Susceptible [facility] Comment on above: Performed By: #### C BCA, 39623-8, PINR, 43211-7, BMP, 10901-8, 00258-3, THYR #### [facility] ([id number]) [address] [place] [address] [place] [address] URN MACROSCOPIC NURon 2023 BILIRUBIN EDISON Small Abnormal NEG [facility] Comment on above: Performed By: #### N UM #### [facility] ([id number]) [address] [place] [address] 55951 BLOOD/HGB EDISON MODERATE Abnormal NEG [facility] Comment on above: Performed By: #### N UM #### [facility] ([id number]) [address] [place] [address] 51567 GLUCOSE EDISON Negative Normal NEG [facility] Comment on above: Performed By: #### N UM #### [facility] ([id number]) [address] [place] [address] [place] [address] KETONES EDISON 40 mg/dL Abnormal NEG [facility] Comment on above: Performed By: #### N UM #### [facility] ([id number]) [address] [place] [address] [place] [address] LEUKOCYTE ESTERASE EDISON Small Abnormal NEG [facility] Comment on above: Performed By: #### N UM #### [facility] ([id number]) [address] [place] [address] [place] [address] NITRITE EDISON Negative Normal NEG [facility] Comment on above: Performed By: #### N UM #### [facility] ([id number]) [address] [place] [address] [place] [address] PH EDISON 5.5 Normal 5.0-8.5 [facility] Comment on above: Performed By: #### N UM #### [facility] ([id number]) [address] [place] [address] 48021 PROTEIN EDISON 100 mg/dL Abnormal NEG [facility] Comment on above: Performed By: #### N UM #### [facility] ([id number]) [address] [place] [address] [place] [address] SPECIFIC GRAVITY EDISON >=1.030 Normal 1.003-1 .03 5 [facility] Comment on above: Performed By: #### N UM #### [facility] ([id number]) [address] [place] [address] UROBILINOGEN EDISON 0.2 eu/dL Normal <1.1 [facility] Comment on above: Performed By: #### N UM #### [facility] ([id number]) [address] [place] [address] aPTT Coag (PPP) [Time]on aPTT Coag (Bld) [Time] 30 s Normal 26-37 [facility] Comment on above: Result Comment: NEW REFERENCE RANGE Performed By: #### C BCA, 97163-8, PINR, 80633-0, BMP, 08461-9, 70972-0, THYR #### [facility] ([id number]) [address] [place] [address] No Panel InformationOrdered By: Billie Parker on 04-22-2024 [facility] Covid-19 PCR ([facility])on SARS-CoV-2 (COVID-19) RNA DARYA+probe Ql (Unsp spec) Not detected Normal NOT DETECTED [facility] Comment on above: Result Comment: When diagnostic testing is negative, the possibility of a false negative should be considered in the context of a patient's recent exposures and the presence of clinical signs and symptoms consistent with SARS-CoV-2. This test is not yet approved or cleared by the [place] FDA. When there are no FDA-approved or cleared tests available, and other criteria are met, FDA can make tests available under an emergency access mechanism called an Emergency Use Authorization (EUA). The EUA for this test is supported by the [place] of Health and Human Service's declaration that circumstances exist to justify the emergency use of in vitro diagnostics for the detection and/or diagnosis of the virus that causes COVID-19. This EUA will remain in effect for the duration of the COVID-19 declaration justifying emergency of IVDs, unless it is terminated or revoked by the FDA (after which the test may no longer be used). Performed By: #### C VDTBH #### [facility] [address] [place] [address] Dr. Emani Dhillon INFLUENZA A AND B AGon 08-02 INFLUBNEGH SEE BELOW Normal [facility] Comment on above: Result Comment: Nega tive for Flu B protein antigen. Infection due to Flu B cannot be ruled out. Flu B antigen in the sample may be below the detection limit of the test. Performed By: #### I NFLUAB #### [facility] [address] [place] [address] Dr. Emani Dhillon INFLUENZA A AG Positive Abnormal NEGATIVE SEE COMMENT [facility] Comment on above: Performed By: #### I NFLUAB #### [facility] [address] [place] [address] Dr. Emani Dhillon INFLUENZA B AG Negative Normal NEGATIVE SEE COMMENT [facility] Comment on above: Performed By: #### I NFLUAB #### [facility] [address] [place] [address] Dr. Emani Dhillon INFLUPOSH SEE BELOW Normal [facility] Comment on above: Result Comment: NOTE : Live attenuated influenzae vaccine viruses can cause a positive result for a rapid influenza diagnostic test if administered up to 7 days prior to rapid testing. Performed By: #### I NFLUAB #### [facility] [address] [place] [address] Dr. Emani Dhillon [facility]on 02-28 SARS-CoV-2 (COVID-19) RNA DARYA+probe Ql (Unsp spec) Detected Critically abnormal NOT DETECTED [facility] Comment on above: Result Comment: This test is not yet approved or cleared by the [place] FDA. When there are no FDA-approved or cleared tests available, and other criteria are met, FDA can make tests available under an emergency access mechanism called an Emergency Use Authorization (EUA). The EUA for this test is supported by the [place] of Health and Human Service's declaration that circumstances exist to justify the emergency use of in vitro diagnostics for the detection and/or diagnosis of the virus that causes COVID-19. This EUA will remain in effect for the duration of the COVID-19 declaration justifying emergency of IVDs, unless it is terminated or revoked by the FDA (after which the test may no longer be used). Performed By: #### C [facility] #### [facility] [address] [address] [address] Emani Dhillon Orthopedic Office/Clinic Not ruby 11-18-2021 Orthopedic Office/Clinic Note Chief Complaint Patient 4.5 months s/p left shoulder TAS-Rotator cuff repair of supraspinatus & infraspinatus, distal clavicle resection, subacromial decompression, SLAP debridement and biceps tenodesis-07/06/21. States doing well. Thearpy complete. Doing home exercises. History of Present Illness 60-year-old white female following up rotator cuff repair of supraspinatus infraspinatus as well as distal clavicle resection subacromial compression biceps tenodesis after a fall injury and injuring her left shoulder. She is 4 and half months out from surgery has done well. She is discontinued physical therapy. She like to go back to work next week. Review of Systems Constitutional Head Nose Mouth Throat Cardio/Respiratory Hematologic Chills: No Headache: No Shortness of Breath: No History of DVT: No Fever: No Sore Throat: No Chest Pain: No History of Claudication: No Ear Pain: No Palpitation: No History of Aneurysm: No History of Gangrene: No Genitourinary Musculoskeletal Psychiatric Vascular Burning: No Muscle Weakness: Yes Anxiety: No Blood Disorder: No Pain: No Joint Pain: No Depression: No Numbness: No Gastrointestinal Dermatology Rheumatologic Problems: No Rash: No History of Rheumatic Arthritis: No Pain: No Pruritus: No History of Gout: No History of Lupus: No Physical Exam Vitals & Measurements HR: 114 (Peripheral) BP: 143/84 HT: 162.56 cm WT: 101.6 kg WT: 101.6 kg (Dosing) BMI: 38.45 Full passive range of motion. 4+5 supraspinatus strength 5/5 posterior cuff 5/5 subscapularis. No point tenderness. Good range of motion without significant crepitus no point tenderness. Neurovascular intact distally. Additional Vitals BP Position/Location: Sitting, Left arm Assessment/Plan 1. Superior labrum oltwpaga-vn-pvqdildap (SLAP) tear of left shoulder 2. Left rotator cuff tear 3. Impingement syndrome, shoulder, left Doing well status post rotator cuff repair patient is seen in evaluation in follow-up of her massive rotator cuff injury secondary to a fall which she has recovered nicely and regain full range of motion and full strength. Continue work on home exercise program. May return to work Monday without restriction. All her questions are answered long-term as far as risk of reinjury and future restrictions. Follow-up as needed. Medical Decision Making Chronic conditions NOT treated during this visit that affected my overall medical decision making: [] Treatment plans discussed but not opted for at this time: [] Prescribed medication that requires intensive monitoring for toxicity: [] I have reviewed the patient?s medication list for medication interactions/contraindicatio ns and/or for upcoming procedures: [yes or no] Time Spent with the Patient I have personally spent [17] minutes on this date, directly related to today's patient visit, including pre and post visit work, for this date of service. Time listed does not include time spent on separately billable services. Problem List/Past Medical History Ongoing Environmental allergies Historical Anemia Impingement syndrome, shoulder, left Left rotator cuff tear Mumps Superior labrum qvexdaim-ae-wxjctiaxp (SLAP) tear of left shoulder Procedure/Surgical History Gastric Sleeve Tubal Ligation ARTHROSCOP ROTATOR CUFF REPR (07/06/2021) Medications multivitamin, 1 tabs, Oral, Daily Allergies penicillin (Rash) sulfa drugs (Rash) Social History Alcohol Current, Wine, Liquor, 1-2 times per week Substance Abuse Denies All Tobacco Former smoker, quit more than 5 years ago Use:. Cigarettes, Started age 15 Years. Stopped age 54 Years. Family History Atrial fibrillation: Mother. Cancer: Grandmother (P). Diabetes mellitus: Mother and Grandmother (M). Heart disease: Mother and Father. Hypothyroidism: Mother. Immunizations Vaccine Date Status SARS-CoV-2 (COVID-19) mRNA-1273 vaccine 08/03/2021 Given Comments : Original Free text Vaccine : Moderna COVID-19 vaccine Hib(HbOC) 04/30/2021 Given Comments : Original Free text Vaccine : Haemophilus influenzae type b vaccine, HbOC SARS-CoV-2 (COVID-19) mRNA BNT-162b2 vax 01/26/2021 Given Comments : Original Free text Vaccine : Pfizer COVID-19 vaccine SARS-CoV-2 (COVID-19) mRNA BNT-162b2 vax 01/05/2021 Given Comments : Original Free text Vaccine : Pfizer COVID-19 vaccine Electronically signed by Morris Houston MD 11/18/21 14:20 EDT Normal [facility] Orthopedic Office/Clinic Not ruby 10-07-2021 Orthopedic Office/Clinic Note Chief Complaint Patient 13.5 weeks s/p left shoulder TAS-Rotator cuff repair of supraspinatus & infraspinatus, distal clavicle resection, subacromial decompression, SLAP debridement and biceps tenodesis-07/06/21. States doing well. Therapy at [facility]. History of Present Illness 60-year-old white female seen in evaluation just over 3 months status post arthroscopic rotator cuff repair biceps tenodesis distal clavicle resection and subacromial decompression of left shoulder. She reports progressing well with physical therapy. She is still under the care of the therapist. She is doing her therapy in [facility]. Therapy progress report is not available for her appointment today. Review of Systems Constitutional Head Nose Mouth Throat Cardio/Respiratory Hematologic Chills: No Headache: No Shortness of Breath: No History of DVT: No Fever: No Sore Throat: No Chest Pain: No History of Claudication: No Ear Pain: No Palpitation: No History of Aneurysm: No History of Gangrene: No Genitourinary Musculoskeletal Psychiatric Vascular Burning: No Muscle Weakness: No Anxiety: No Blood Disorder: No Pain: No Joint Pain: No Depression: No Numbness: No Gastrointestinal Dermatology Rheumatologic Problems: No Rash: No History of Rheumatic Arthritis: No Pain: No Pruritus: No History of Gout: No History of Lupus: No Physical Exam Vitals & Measurements HR: 80 (Peripheral) BP: 162/88 HT: 162.56 cm WT: 100.3 kg WT: 100.3 kg (Dosing) BMI: 37.96 Therapy progress report is not available Well- healed incisions No biceps deformity Distal neurologic and vascular exam normal No point tenderness, generalized discomfort only Range of motion shows 80 degrees isolated glenohumeral elevation 40 degrees external rotation internal rotation to L2 and forward flexion of 135 degrees Rotator cuff strength 4/5 posterior cuff, 4/5 supraspinatus, 4/5 subscapularis Additional Vitals BP Position/Location: Sitting, Right arm Assessment/Plan 1. Left rotator cuff tear 2. Impingement syndrome, shoulder, left 3. Superior labrum konwsiye-ub-nqhijjcpo (SLAP) tear of left shoulder Plan: S/p shoulder arthroscopy doing well Home exercise program Physical therapy phase 2-3 program Ice as necessary No pain medication renewed Restrictions and precautions reviewed Be out of sling Modified duty no lifting above waist level Follow up 4 weeks No studies on return Medical Decision Making Chronic conditions NOT treated during this visit that affected my overall medical decision making: [] Treatment plans discussed but not opted for at this time: [] Prescribed medication that requires intensive monitoring for toxicity: [] I have reviewed the patient?s medication list for medication interactions/contraindicatio ns and/or for upcoming procedures: [yes or no] Time Spent with the Patient I have personally spent [17] minutes on this date, directly related to today's patient visit, including pre and post visit work, for this date of service. Time listed does not include time spent on separately billable services. Problem List/Past Medical History Ongoing Environmental allergies Impingement syndrome, shoulder, left Left rotator cuff tear Superior labrum zkmwpual-jy-shgihxyvm (SLAP) tear of left shoulder Historical Anemia Mumps Procedure/Surgical History Gastric Sleeve Tubal Ligation ARTHROSCOP ROTATOR CUFF REPR (07/06/2021) Medications multivitamin, 1 tabs, Oral, Daily Allergies penicillin (Rash) sulfa drugs (Rash) Social History Alcohol Current, Wine, Liquor, 1-2 times per week Substance Abuse Denies All Tobacco Former smoker, quit more than 5 years ago Use:. Cigarettes, Started age 15 Years. Stopped age 54 Years. Family History Atrial fibrillation: Mother. Cancer: Grandmother (P). Diabetes mellitus: Mother and Grandmother (M). Heart disease: Mother and Father. Hypothyroidism: Mother. Immunizations Vaccine Date Status SARS-CoV-2 (COVID-19) mRNA-1273 vaccine 08/03/2021 Given Comments : Original Free text Vaccine : Moderna COVID-19 vaccine Hib(HbOC) 04/30/2021 Given Comments : Original Free text Vaccine : Haemophilus influenzae type b vaccine, HbO SARS-CoV-2 (COVID-19) mRNA BNT-162b2 vax 01/26/2021 Given Comments : Original Free text Vaccine : Pfizer COVID-19 vaccine SARS-CoV-2 (COVID-19) mRNA BNT-162b2 vax 01/05/2021 Given Comments : Original Free text Vaccine : Pfizer COVID-19 vaccine Electronically signed by Morris Houston MD 10/07/21 14:31 EST Normal [facility] Orthopedic Office/Clinic Not ruby 09-08-2021 Orthopedic Office/Clinic Note Chief Complaint Patient 9 weeks s/p left shoulder TAS-Rotator cuff repair of supraspinatus & infraspinatus, distal clavicle resection, subacromial decompression, SLAP debridement and biceps tenodesis-07/06/21. Therapy at [facility]. States doing well. History of Present Illness 60 year-old established female patient presents 2 months s/p above stated left shoulder procedure. She is 6 weeks into phase I- no PT report available today. Patient states that passively she has gotten to 137 degrees. Continued use of sling. Review of Systems Constitutional Head Nose Mouth Throat Cardio/Respiratory Hematologic Chills: No Headache: No Shortness of Breath: No History of DVT: No Fever: No Sore Throat: No Chest Pain: No History of Claudication: No Ear Pain: No Palpitation: No History of Aneurysm: No History of Gangrene: No Genitourinary Musculoskeletal Psychiatric Vascular Burning: No Muscle Weakness: No Anxiety: No Blood Disorder: No Pain: No Joint Pain: Yes Depression: No Numbness: No Gastrointestinal Dermatology Rheumatologic Problems: No Rash: No History of Rheumatic Arthritis: No Pain: No Pruritus: No History of Gout: No History of Lupus: No Physical Exam Vitals & Measurements HR: 98 (Peripheral) BP: 107/78 HT: 162.56 cm WT: 100.0 kg WT: 100.0 kg (Dosing) BMI: 37.84 Left shoulder- 80 active flex/abd, 100 passive flex/abd, 45 passive ER, reach behind to lateral hip, 4/5, NVI Additional Vitals BP Position/Location: Sitting, Left arm Assessment/Plan 1. Impingement syndrome, shoulder, left 2. Left rotator cuff tear 3. Superior labrum ybcqcfnj-di-hoaqkbtsu (SLAP) tear of left shoulder Patient has a little postoperative stiffness, but had a large rotator cuff tear. D/c sling. Continue PT emphasizing getting passive and active assist ROM so that she can progress to active in phase II. This was reviewed. Work note provided. FU in 4 weeks. Medical Decision Making Chronic conditions NOT treated during this visit that affected my overall medical decision making: [] Treatment plans discussed but not opted for at this time: [] Prescribed medication that requires intensive monitoring for toxicity: [] I have reviewed the patient?s medication list for medication interactions/contraindicatio ns and/or for upcoming procedures: [yes or no] Time Spent with the Patient I have personally spent [] minutes on this date, directly related to today's patient visit, including pre and post visit work, for this date of service. Time listed does not include time spent on separately billable services. Problem List/Past Medical History Ongoing Environmental allergies Impingement syndrome, shoulder, left Left rotator cuff tear Superior labrum lnimtosf-at-axxaejduq (SLAP) tear of left shoulder Historical Anemia Mumps Procedure/Surgical History Gastric Sleeve Tubal Ligation ARTHROSCOP ROTATOR CUFF REPR (07/06/2021) Medications DME, See Instructions multivitamin, 1 tabs, Oral, Daily Allergies penicillin (Rash) sulfa drugs (Rash) Social History Alcohol Current, Wine, Liquor, 1-2 times per week Substance Abuse Denies All Tobacco Former smoker, quit more than 5 years ago Use:. Cigarettes, Started age 15 Years. Stopped age 54 Years. Family History Atrial fibrillation: Mother. Cancer: Grandmother (P). Diabetes mellitus: Mother and Grandmother (M). Heart disease: Mother and Father. Hypothyroidism: Mother. Electronically signed by Maylin Shearer PA-C 09/08/21 11:03 EST Normal [facility] Orthopedic Office/Clinic Not ruby 08-11-2021 Orthopedic Office/Clinic Note Chief Complaint Patient 4 weeks s/p left shoulder TAS-Rotator cuff repair of supraspinatus & infraspinatus, distal clavicle resection, subacromial decompression, SLAP debridement and biceps tenodesis-07/06/21. Doing well. Therapy at [facility]. History of Present Illness 60 year-old established female patient presents 5 weeks s/p above stated left shoulder procedure. Continued soreness and weakness. She is in the middle of her 2nd week of PT phase I. Continued sling use. No signs of injury to the shoulder since her fall 3 weeks ago. Review of Systems Constitutional Head Nose Mouth Throat Cardio/Respiratory Hematologic Chills: No Headache: No Shortness of Breath: No History of DVT: No Fever: No Sore Throat: No Chest Pain: No History of Claudication: No Ear Pain: No Palpitation: No History of Aneurysm: No History of Gangrene: No Genitourinary Musculoskeletal Psychiatric Vascular Burning: No Muscle Weakness: No Anxiety: No Blood Disorder: No Pain: No Joint Pain: No Depression: No Numbness: No Gastrointestinal Dermatology Rheumatologic Problems: No Rash: No History of Rheumatic Arthritis: No Pain: No Pruritus: No History of Gout: No History of Lupus: No Physical Exam Vitals & Measurements HR: 73 (Peripheral) BP: 168/89 HT: 162.56 cm WT: 98.0 kg WT: 98.0 kg (Dosing) BMI: 37.09 BMI: 37.09 Left shoulder- no AROM, 80 passive flex/abd, 40 passive ER, 4/5, NVI, tenderness over AC joint Additional Vitals BP Position/Location: Sitting, Right arm Assessment/Plan 1. Impingement syndrome, shoulder, left 2. Left rotator cuff tear 3. Superior labrum ljuhpkpv-ay-tzukodace (SLAP) tear of left shoulder Continue PT/HEP per protocol. Patient questions asked and answered. Continue ice and NSAID for pain and swelling. Wean out of sling in one week. FU in 4 weeks. Medical Decision Making Chronic conditions NOT treated during this visit that affected my overall medical decision making: [] Treatment plans discussed but not opted for at this time: [] Prescribed medication that requires intensive monitoring for toxicity: [] I have reviewed the patient?s medication list for medication interactions/contraindicatio ns and/or for upcoming procedures: [yes or no] Time Spent with the Patient I have personally spent [] minutes on this date, directly related to today's patient visit, including pre and post visit work, for this date of service. Time listed does not include time spent on separately billable services. Problem List/Past Medical History Ongoing Environmental allergies Impingement syndrome, shoulder, left Left rotator cuff tear Superior labrum xxjaytxu-wc-rubftkhhl (SLAP) tear of left shoulder Historical Anemia Mumps Procedure/Surgical History Gastric Sleeve Tubal Ligation ARTHROSCOP ROTATOR CUFF REPR (07/06/2021) Medications DME, See Instructions multivitamin, 1 tabs, Oral, Daily Allergies penicillin (Rash) sulfa drugs (Rash) Social History Alcohol Current, Wine, Liquor, 1-2 times per week Substance Abuse Denies All Tobacco Former smoker, quit more than 5 years ago Use:. Cigarettes, Started age 15 Years. Stopped age 54 Years. Family History Atrial fibrillation: Mother. Cancer: Grandmother (P). Diabetes mellitus: Mother and Grandmother (M). Heart disease: Mother and Father. Hypothyroidism: Mother. Electronically signed by Maylin Shearer PA-C 08/11/21 10:59 EST Normal [facility] Orthopedic Office/Clinic Not ruby 07-14-2021 Orthopedic Office/Clinic Note Chief Complaint Patient 1 week s/p left shoulder TAS-Rotator cuff repair of supraspinatus & infraspinatus, distal clavicle resection, subacromial decompression, SLAP debridement and biceps tenodesis-07/06/21. States is doing well. XR today BVO. History of Present Illness 60-year-old white female following up 1 week status post left shoulder arthroscopy with rotator cuff repair supraspinatus infraspinatus distal clavicle resection biceps tenodesis subacromial decompression extensive labral debridement. She fell last week postoperatively but does not feel that she injured her shoulder. She states that she was in her sling. Review of Systems Constitutional Head Nose Mouth Throat Cardio/Respiratory Hematologic Chills: No Headache: No Shortness of Breath: No History of DVT: No Fever: No Sore Throat: No History of Claudication: No Ear Pain: No History of Aneurysm: No History of Gangrene: No Genitourinary Musculoskeletal Psychiatric Vascular Burning: Yes Muscle Weakness: No Anxiety: No Blood Disorder: No Pain: No Joint Pain: No Depression: No Numbness: No Gastrointestinal Dermatology Rheumatologic Problems: No Rash: No History of Rheumatic Arthritis: No Pain: No Pruritus: No History of Gout: No History of Lupus: No Physical Exam Vitals & Measurements HR: 64 (Peripheral) BP: 184/96 HT: 162.56 cm WT: 98.4 kg WT: 98.4 kg (Dosing) BMI: 37.24 She is given a copy of her surgery report, arthroscopic photos were reviewed Well- healed incisions Sutures absorbable Distal neurologic and vascular exam normal No point tenderness, generalized discomfort only No biceps deformity 2 view shoulder x-ray shows well resected spurs Additional Vitals BP Position/Location: Sitting, Left arm Assessment/Plan 1. Superior labrum oyegosam-zk-rvypyvlkb (SLAP) tear of left shoulder Plan: S/p shoulder arthroscopy doing well Home exercise program Physical therapy phase 1 program starting next month Ice as necessary No pain medication renewed Restrictions and precautions reviewed, fall precautions were also emphasized with her as far as immediate catastrophic failure of her repair with this type of traumatic injury Continue sling Continue off work Follow up 4 weeks No studies on return Medical Decision Making Chronic conditions NOT treated during this visit that affected my overall medical decision making: [] Treatment plans discussed but not opted for at this time: [] Prescribed medication that requires intensive monitoring for toxicity: [] I have reviewed the patient?s medication list for medication interactions/contraindicatio ns and/or for upcoming procedures: [yes or no] Time Spent with the Patient I have personally spent [] minutes on this date, directly related to today's patient visit, including pre and post visit work, for this date of service. Time listed does not include time spent on separately billable services. Problem List/Past Medical History Ongoing Environmental allergies Impingement syndrome, shoulder, left Left rotator cuff tear Superior labrum cmhvcjfe-xd-qzeqfojkp (SLAP) tear of left shoulder Historical Anemia Mumps Procedure/Surgical History Gastric Sleeve Tubal Ligation ARTHROSCOP ROTATOR CUFF REPR (07/06/2021) Medications DME, See Instructions multivitamin, 1 tabs, Oral, Daily Allergies penicillin (Rash) sulfa drugs (Rash) Social History Alcohol Current, Wine, Liquor, 1-2 times per week Substance Abuse Denies All Tobacco Former smoker, quit more than 5 years ago Use:. Cigarettes, Started age 15 Years. Stopped age 54 Years. Family History Atrial fibrillation: Mother. Cancer: Grandmother (P). Diabetes mellitus: Mother and Grandmother (M). Heart disease: Mother and Father. Hypothyroidism: Mother. Diagnostic Results XR Shoulder Complete Left 07/14/21 09:59:26 IMPRESSION: No high riding the head. Status post distal clavicle resection acromioplasty with good decompression of supraspinatus fossa. No abnormal soft tissue calcifications. jjd Signed By: Morris Houston MD Electronically signed by Morris Houston MD 07/14/21 10:56 EST Normal [facility] XR Shoulder Complete Lefton 07-14-2021 XR Shoulder Complete Left _EXAM: 2 views left shoulder IMPRESSION: No high riding the head. Status post distal clavicle resection acromioplasty with good decompression of supraspinatus fossa. No abnormal soft tissue calcifications. jjd Final Signed by: Morris Houston MD Signed (Electronic Signature): 07/14/2021 10:00 am Transcribed DT/TM: 07/14/2021 10:00 (If Report Is Signed, Electronically Signed in Other Vendor System) Normal [facility] Operative Reporton 1 Operative Report Indication for Surge ry Left shoulder massive rotator cuff tear acute on chronic retracted, acromioclavicular arthrosis, chronic impingement syndrome failing to respond to conservative treatment Preoperative Diagnosis Left shoulder massive rotator cuff tear supraspinatus and infraspinatus acute on chronic, acromioclavicular arthrosis symptomatic, impingement syndrome Postoperative Diagnosis Same, full-thickness tears of supraspinatus and infraspinatus, acromioclavicular arthrosis grade 4, 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 They assisted with prepping, draping, intraoperative positioning of extremity, closure, dressing placement, arthroscope management during the repair, and suture management during the repair. Anesthesia [facility] laryngeal mask airway, interscalene block for postoperative pain Estimated Blood Loss Minimal Urine Output Not recorded Findings Full-thickness tears of supraspinatus and infraspinatus, severe grade 4 acromioclavicular arthrosis, chondromalacia of the humeral head grade 3, type II SLAP tear Specimen(s) None Complications None apparent Technique Description of Procedure: The patient was seen and evaluated in the preoperative holding area. We discussed risks, benefits, and alternatives. The patient elects to proceed per the informed consent on file at [facility] for a shoulder arthroscopy. Surgical site was initialed. Patient was taken to the operating room and positioned supine. Interscalene block was placed in the holding area for postoperative pain. General anesthesia was induced. The patient was then positioned in the beachchair positioner. Bony prominences were padded. Examination under anesthesia was performed: Range of Motion: Full Stability: Normal, Symmetric Crepitus: Moderate The shoulder was prepped and draped in the sterile surgical fashion. Anterior and posterior portals were created. Portals were injected with 1% lidocaine with epinephrine prior to incision. Systematic observation of the shoulder was undertaken arthroscopically. Intra-articular : Biceps [place]: Type II SLAP tear with subluxation into the joint and thickening of the biceps anchor Labrum: Type II SLAP tear involving biceps anchor posterior superior and anterior superior labrum, normal anterior inferior and posterior inferior labrum Glenoid: No chondromalacia Humeral Head: Grade 3 chondromalacia superiorly Subscapularis: Normal Anterior Capsule: Normal Biceps Tendon: Normal Supraspinatus: Full-thickness retracted tear to the level of the glenoid Infraspinatus: Full-thickness tear with retraction to the level of the glenoid Hill-Sachs: None noted Posterior Capsule: Normal Axillary Recess: No loose bodies or synovitis On probing of the superior labrum it was found to sublux and the joint was considerably thickened. We tagged the biceps for later tenodesis and debrided the superior labrum back to a stable rim removing the area of thickening. We debrided any adhesions from the articular surface to the rotator cuff for later mobilization of the tendon possibly to the tuberosity. The tuberosity at the site of the supraspinatus infraspinatus was debrided along with the humeral head what appeared to be articulating with the acromion with impaction area noted on the acromion. There was debrided back to a stable rim of cartilage. The subacromial space was then entered arthroscopically. A lateral portal was added. Subacromial: Bursa: Thickened and inflamed Acromion: 7 mm anterior acromial hook Acromioclavicular joint: Spurring and grade 4 chondromalacia Distal clavicle: Spurring Rotator cuff: Full-thickness retracted tears of supraspinatus and infraspinatus, normal bursal side of the subscapularis Bursa was debrided to expose the large retracted tear of the rotator cuff. We outlined the anterior acromion and performed an acromioplasty using the barrel bur and removed release the coracoacromial ligament using the Ford wand once we determined that we could mobilize the rotator cuff to the tuberosity. The tuberosity was debrided to bleeding bone at the attachments noted of the supraspinatus and infraspinatus. Once this was debrided we removed 8 mm of distal clavicle using the barrel bur given the grade 4 changes there. An anterolateral portal was added and we performed a tenodesis of the biceps midway along its excursion in the bicipital groove with an 8 x 19 fork tip Bio-Teno (more content not included)... 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 No Normal [facility] Comment on above: Performed By: #### C [id number] #### [facility] [address] [place] [address] In ICU? No Normal [facility] Comment on above: Performed By: #### C [id number] #### [facility] [address] [place] [address] status? Not Normal [facility] Comment on above: Performed By: #### C [id number] #### [facility] [address] [place] [address] SARS-CoV-2 (COVID-19) RNA DARYA+probe Ql (Unsp spec) Normal Negative [facility] Comment on above: Result Comment: * Ne gative (Non-Reactive) * Negative results from patients with symptom onset outside of one to six days should be treated as presumptive. A false-negative test result may occur if the level of viral antigen in a sample is below the detection limit of the test or if the sample was collected or transported improperly; therefore, a negative test result does not eliminate the possibility of SARS-CoV-2 infection. Negative results should not be used as the sole basis for treatment or patient management decisions, including infection control decisions. Negative results should be considered in the context of a patient?s recent exposures, history and the presence of clinical signs and symptoms consistent with COVID-19. Negative ADDITIONAL INFORMATION: Testing performed on the [place] [address] using the SARS-CoV-2 Antigen test. Results are for the identification of SARS-CoV-2 nucleocapsid antigen. The VITROS SARS-CoV-2 Antigen test can detect both viable and non-viable SARS-CoV-2 material. The VITROS SARS-CoV-2 Antigen test performance depends on antigen load and may not correlate with other diagnostic methods performed on the same specimen. The performance of this test has not been evaluated for use in patients without signs and symptoms of respiratory infection. Test results should be considered in the context of all available clinical and diagnostic information, including patient history and other test results. In the [place], the VITROS SARS-CoV-2 Antigen test is only for use under the Food and Drug Administration?s Emergency Use Authorization. HCP Fact Sheet: https://www.fda.gov/media/002936/download Patient Fact Sheet: https://www.fda.gov/media/804576/download Performed By: #### C [id number] #### [place] [address] SARS-CoV-2 (COVID-19) RNA DARYA+probe Ql (Unsp spec) No Normal [facility] Comment on above: Performed By: #### C [id number] #### [place] [address] SARS-CoV-2 (COVID-19) RNA DARYA+probe Ql (Unsp spec) Unknown Normal [facility] Comment on above: Performed By: #### C [id number] #### [place] [address] Symptomatic as defined by CDC? No Normal [facility] Comment on above: Performed By: #### C [id number] #### [place] [address] Orthopedic Office/Clinic Not ruby 06-07-2021 Orthopedic Office/Clinic Note Chief Complaint Patient here to discuss surgery on her left shoulder. Last seen for this issue 05/19/21. History of Present Illness 60-year-old white female seen in evaluation of her left shoulder retracted rotator cuff tear after a fall. She has put some thought to it and is interested in proceeding with surgical intervention fully aware that there may be potential that there is higher retear rate given atrophy and some chronicity to the tear. This is all been reviewed with her today and she elects to proceed with the surgical intervention after discussing with her family. Review of Systems Constitutional Head Nose Mouth Throat Cardio/Respiratory Hematologic Chills: No Headache: No Shortness of Breath: No History of DVT: No Fever: No Sore Throat: No Chest Pain: No History of Claudication: No Ear Pain: No Palpitation: No History of Aneurysm: No History of Gangrene: No Genitourinary Musculoskeletal Psychiatric Vascular Burning: No Muscle Weakness: Yes Anxiety: No Blood Disorder: No Pain: No Joint Pain: Yes Depression: No Numbness: No Gastrointestinal Dermatology Rheumatologic Problems: No Rash: No History of Rheumatic Arthritis: No Pain: No Pruritus: No History of Gout: No History of Lupus: No Physical Exam Vitals & Measurements HR: 87 (Peripheral) BP: 144/93 HT: 162.56 cm WT: 94.4 kg WT: 94.4 kg (Dosing) BMI: 35.72 Full passive range of motion and weakness with supraspinatus and infraspinatus testing. Normal subscapularis. No biceps deformity noted. No acromioclavicular joint pain is identified. Lungs clear, cardiac exam is regular rate and rhythm, alert and oriented x3 and cooperative for the exam Additional Vitals BP Position/Location: Sitting, Left arm Assessment/Plan 1. Left rotator cuff tear 2. Fall on concrete Risk benefits alternatives were discussed with her at length today is similar to her previous discussion. All of her questions were answered to her satisfaction today. She elects to proceed with left shoulder diagnostic and operative arthroscopy with arthroscopic subacromial compression, arthroscopic rotator cuff repair, possible arthroscopic labral debridement biceps tenodesis. All of her questions were answered to her satisfaction today. Risks, benefits, alternatives of the aforementioned surgical procedure have been discussed at length with the patient. Imaging and/or studies have also been reviewed. We have emphasized conservative treatment options and have outlined rehabilitation and recovery schedule for a successful result. The patient has signed an informed consent in the office today. Educational materials and imaging/study results have been provided to the patient today along with post-operative instructions for the procedure. Additional discussion took place regarding risks vs benefits of proceeding vs. delaying the procedure during the Sars-Cov-2 pandemic. The general risk of undergoing the operation if infected while asymptomatic, risk of nosocomial contraction of Sars-Cov-2/COVID-19, possible increased postoperative complications if contraction of COVID-19 postoperatively, risk of possible delay of care during a surge, and advanced directives/living coronado was also discussed. Importance of preop testing for at risk procedures/anesthesia as well as strict quarantining emphasized. Medical Decision Making Chronic conditions NOT treated during this visit that affected my overall medical decision making: [] Treatment plans discussed but not opted for at this time: [] Prescribed medication that requires intensive monitoring for toxicity: [] I have reviewed the patient?s medication list for medication interactions/contraindicatio ns and/or for upcoming procedures: [yes or no] Time Spent with the Patient I have personally spent [18] minutes on this date, directly related to today's patient visit, including pre and post visit work, for this date of service. Time listed does not include time spent on separately billable services. Problem List/Past Medical History Ongoing Environmental allergies Left rotator cuff tear Historical Anemia Mumps Procedure/Surgical History Gastric Sleeve Tubal Ligation Medications multivitamin, 1 tabs, Oral, Daily Allergies penicillin (Rash) sulfa drugs (Rash) Social History Alcohol Current, Wine, Liquor, 1-2 times per week Substance Abuse Denies All Tobacco Former smoker, quit more than 5 years ago Use:. Cigarettes, Started age 15 Years. Stopped age 54 Years. Family History Atrial fibrillation: Mother. Cancer: Grandmother (P). Diabetes mellitus: Mother and Grandmother (M). Heart disease: Mother and Father. Hypothyroidism: Mother. Diagnostic Results Left shoulder retracted rotator cuff tear with anterior and lateral acromial spurring but no significant acromioclavicular arthrosis. There is some degenerative signal within the superior labrum possibly indicating SLAP tear near the biceps o (more content not included)... Normal [facility] Orthopedic Office/Clinic Not ruby 05-19-2021 Orthopedic Office/Clinic Note Chief Complaint Left shoulder injury. States MondayFebruary 19 was walking- tripped & fell on outstretched arm. Went to her PCP Dr. Mark 1 week later who ordered XR & PT for 4 weeks. States no improvement went to see Jony Lund who ordered MRI. XR today BVO. History of Present Illness 60-year-old white female who was walking on February 19 and she tripped and fell on an outstretched extremity. She is now 3 months out and had negative x-rays but has gone through 4 to 6 weeks of physical therapy. She had an MRI which showed a retracted tear of her rotator cuff. She reports no previous problems or limitations of her range of motion prior to her current injury. She is right-hand dominant and the injury involves her left shoulder. She has not seen much as far as improvements with strength or motion but has seen improvements in pain. Her primary care provider ordered the studies and she was originally referred to an orthopedic surgeon out of her network in [facility]. Review of Systems Constitutional Head Nose Mouth Throat Cardio/Respiratory Hematologic Chills: No Headache: No Shortness of Breath: No History of DVT: No Fever: No Sore Throat: No Chest Pain: No History of Claudication: No Ear Pain: No Palpitation: No History of Aneurysm: No History of Gangrene: No Genitourinary Musculoskeletal Psychiatric Vascular Burning: No Muscle Weakness: Yes Anxiety: No Blood Disorder: No Pain: No Joint Pain: Yes Depression: No Numbness: No Gastrointestinal Dermatology Rheumatologic Problems: No Rash: No History of Rheumatic Arthritis: No Pain: No Pruritus: No History of Gout: No History of Lupus: No Physical Exam Vitals & Measurements HR: 72 (Peripheral) BP: 160/89 HT: 162.56 cm WT: 94.2 kg WT: 94.2 kg (Dosing) BMI: 35.65 Shoulder left Inspection-skin normal, no atrophy, no biceps deformity Tenderness-anterior lateral acromion Neurovascular-sensory, motor and vascular distally within normal limits Range of motion-85 degrees isolated glenohumeral elevation external rotation 50 degrees internal rotation to L3 forward flexion of 135 degrees, moderate subacromial crepitus, Scapular mechanics compensatory negative Hornblower, active abduction and flexion to 100 degrees Strength-3/5 supraspinatus, 5/5 subscapularis, 3/5 posterior cuff Crossarm negative, impingement positive, speeds negative, apprehension positive, peelback negative Alert and oriented ?3. Vitals are reviewed she reports feeling well. Cooperative and calm with the examination. No lymphedema no palpable regional lymph nodes. Additional Vitals BP Position/Location: Sitting, Left arm Assessment/Plan 1. Left rotator cuff tear Likely chronic component with acute exacerbation unlikely extension into the infraspinatus. This likely destabilize the dynamic stabilizers of the shoulder and is given her limited activities. Given the chronicity a lengthy discussion was had with her concerning her ability to rehabilitate versus partial repair versus attempting repair on the entire cuff to get back to the level of function prior to her injury 3 months ago. Risk of worsening the shoulder and making it greater instability and greater pain potential with overhead activities impinging on the attempted repair of the rotator cuff is reviewed with her as well as possible bailout in the future concerning reverse shoulder arthroplasty and continuing rehabilitation for now. Partial repair is discussed with her along with debridement as well as attempted complete repair and the recovery process is reviewed with her at length today. She elects to proceed at this point with conservative treatment working on range of motion strengthening for her nondominant side and consideration of reverse shoulder arthroplasty in the future rather than proceeding with an arthroscopic repair. She will discuss this with her family and then get back with us on her final decision. X-rays as well as MRI images from [facility] are reviewed with her as well as current images today. Medical Decision Making Chronic conditions NOT treated during this visit that affected my overall medical decision making: [] Treatment plans discussed but not opted for at this time: [] Prescribed medication that requires intensive monitoring for toxicity: [] I have reviewed the patient?s medication list for medication interactions/contraindicatio ns and/or for upcoming procedures: [yes or no] Time Spent with the Patient I have personally spent [49] minutes on this date, directly related to today's patient visit, including pre and post visit work, for this date of service. Time listed does not include time spent on separately billable services. Problem List/Past Medical History Ongoing Environmental allergies Historical Anemia Mumps Procedure/Surgical History Gastric Sleeve Tubal Ligation Medications multivitamin, 1 tabs, Oral, Daily Allergies penicillin (Rash) sulfa drugs (Rash) So (more content not included)... Normal [facility] Provider Letteron 05-19-2021 Provider Letter (Inserted Image. Maggy ble to display) Billy Mark MD [address] [place] [address] Re: Radha Drake Date of Visit: 05/19/2021 Dear Billy Mark, Thank you for letting us participate in the care of your patient. Included is a copy of the office visit note. Sincerely, Morris Houston MD [address] [place] [address] The following document(s) were included in the letter: May 19, 2021 10:51:08 EDT - (05/19/2021) Office Visit Note Normal [facility] XR Shoulder Complete Lefton 05-19-2021 XR Shoulder Complete Left _EXAM: 3 views left shoulder IMPRESSION: Type II anterior acromial hook. No evidence of any fracture or dislocation. Moderate acromial clavicular arthrosis is noted but no significant sub-AC joint spurring is noted. There is narrowing of the joint. Minimal high riding the head. No glenohumeral arthrosis. jjd Final Signed by: Morris Houston MD Signed (Electronic Signature): 05/19/2021 10:06 am Transcribed DT/TM: 05/19/2021 10:06 (If Report Is Signed, Electronically Signed in Other Vendor System) Normal [facility] [id number] 10-02-2020 SARS-CoV-2 Not Detected Normal [facility] Comment on above: Result Comment: The specimen is NEGATIVE for SARS-CoV-2, the novel coronavirus associated with COVID-19. A negative result does not rule out COVID-19. Jermaine SARS-CoV-2 for use on the [employer] is a real-time RT-PCR test intended for the qualitative detection of nucleic acids from SARS-CoV-2 in clinician-collected nasal, nasopharyngeal, and oropharyngeal swab specimens from individuals who meet COVID-19 clinical and/or epidemiological criteria. Jermaine SARS-CoV-2 is for use only under Emergency Use Authorization (EUA) in laboratories certified under Clinical Laboratory Improvement Amendments of 1988 (CLIA), 42 U.S.C. ?263a, that meet requirements to perform high or moderate complexity tests. An individual without symptoms of COVID-19 and who is not shedding SARS-CoV-2 virus would expect to have a negative (not detected) result in this assay. Fact sheet for Healthcare Providers: https://www.fda.gov/media/963569/download Fact sheet for Patients: https://www.fda.gov/media/879605/download METHODOLOGY: RT-PCR Performed By: #### C OVID #### [facility] [employer] [address] [place] [id number] Electric Switch Tester: Rex Anthony MD SARS-CoV-2 [facility] Comment on above: Performed By: #### C OVID #### [address] [id number] Electric Switch Tester: Rex Anthony MD SARS-CoV-2 Source .NASOPHARYNGEAL SWAB [facility] Comment on above: Performed By: #### C OVID #### [facility] [employer] [address] [place] [address] [id number] Electric Switch Tester: Rex Anthony MD [id number] 09-24-2020 SARS-CoV-2 Not Detected [facility] Comment on above: Result Comment: The specimen is NEGATIVE for SARS-CoV-2, the novel coronavirus associated with COVID-19. A negative result does not rule out COVID-19. Jermaine SARS-CoV-2 for use on the [employer] is a real-time RT-PCR test intended for the qualitative detection of nucleic acids from SARS-CoV-2 in clinician-collected nasal, nasopharyngeal, and oropharyngeal swab specimens from individuals who meet COVID-19 clinical and/or epidemiological criteria. Jermaine SARS-CoV-2 is for use only under Emergency Use Authorization (EUA) in laboratories certified under Clinical Laboratory Improvement Amendments of 1988 (CLIA), 42 U.S.C. ?263a, that meet requirements to perform high or moderate complexity tests. An individual without symptoms of COVID-19 and who is not shedding SARS-CoV-2 virus would expect to have a negative (not detected) result in this assay. Fact sheet for Healthcare Providers: https://www.fda.gov/media/025481/download Fact sheet for Patients: https://www.fda.gov/media/092867/download METHODOLOGY: RT-PCR Performed By: #### C OVID #### [address] [id number] Electric Switch Tester: Rex Anthony MD SARS-CoV-2 [facility] Comment on above: Performed By: #### C OVID #### [facility] [employer] [address] [place] [address] [id number] Electric Switch Tester: Rex Anthony MD [id number] 09-23-2020 SARS-CoV-2 Source .NASOPHARYNGEAL SWAB [facility] Comment on above: Performed By: #### C OVID #### [facility] [employer] [address] [place] [address] [id number] Electric Switch Tester: Rex Anthony MD [id number] 09-04-2020 SARS-CoV-2 Not Detected [facility] Comment on above: Result Comment: The specimen is NEGATIVE for SARS-CoV-2, the novel coronavirus associated with COVID-19. A negative result does not rule out COVID-19. Jermaine SARS-CoV-2 for use on the [employer] is a real-time RT-PCR test intended for the qualitative detection of nucleic acids from SARS-CoV-2 in clinician-collected nasal, nasopharyngeal, and oropharyngeal swab specimens from individuals who meet COVID-19 clinical and/or epidemiological criteria. Jermaine SARS-CoV-2 is for use only under Emergency Use Authorization (EUA) in laboratories certified under Clinical Laboratory Improvement Amendments of 1988 (CLIA), 42 U.S.C. ?263a, that meet requirements to perform high or moderate complexity tests. An individual without symptoms of COVID-19 and who is not shedding SARS-CoV-2 virus would expect to have a negative (not detected) result in this assay. Fact sheet for Healthcare Providers: https://www.fda.gov/media/159696/download Fact sheet for Patients: https://www.fda.gov/media/497590/download METHODOLOGY: RT-PCR Performed By: #### C OVID #### [address] [id number] Electric Switch Tester: Rex Anthony MD SARS-CoV-2 [facility] Comment on above: Performed By: #### C OVID #### [facility] [address] [place] [address] [id number] Electric Switch Tester: Rex Anthony MD SARS-CoV-2,Rapid [facility] Comment on above: Performed By: #### C OVID #### [facility] [employer] [address] [place] [address] [id number] Electric Switch Tester: Rex Anthony MD SARS-CoV-2 Source .NASOPHARYNGEAL SWAB [facility] Comment on above: Performed By: #### C OVID #### [facility] [address] [place] [address] Electric Switch Tester: [facility] Name: RADHA DRAKE : 1960 Unit: [id number] Age: 59 Attending Physician: DREAD JENSEN M.D. Location: [facility] Date of Service: DISCHARGE SUMMARY DATE OF ADMISSION: 06/29/20 DATE OF DISCHARGE: 06/30/20 FINAL DIAGNOSIS: Morbid obesity. ADDITIONAL DIAGNOSIS: PROCEDURES PERFORMED: CARE, TREATMENT AND SERVICES PROVIDED: This 59-year-old morbidly obese lady underwent laparoscopic removal of a gastric band followed by a laparoscopic sleeve gastrectomy by Dr. Jensen for morbid obesity. She did well following surgery and the following day underwent upper gastrointestinal study with water soluble contrast. This did not reveal any evidence of leak or obstruction in the gastric remnant. She was started on a clear liquid diet which she tolerated well, with mild nausea but no vomiting. Later that afternoon she was drinking clear liquids without difficulty and was allowed to go home on a clear liquid diet with protein shakes for the next two weeks. She was also provided with a prescription for liquid Lortab for pain relief. DISCHARGE DISPOSITION AND DISCHARGE INSTRUCTIONS: Condition at discharge: stable. Disposition: home, independently. Follow up with Dr. Jensen in two weeks. Please see patient discharge instruction sheet. Electronically Signed by: SHRADDHA HARO M.D. 08/26/20 1308 SHRADDHA HARO M.D. Date Dict: 08/25/20 1135 SHRADDHA HARO M.D. Date trans: 08/25/20 1502 [facility] [id number] cc: IZZY VERDUGO MD-[facility] DREAD JENSEN M.D., MIRZA S M.D. NADERER, MARC A MD [facility] [id number] 08-21-2020 SARS-CoV-2 [facility] Comment on above: Performed By: #### C OVID #### [address] [id number] Electric Switch Tester: Rex Anthony MD SARS-CoV-2 Not Detected Normal NOTDET [facility] Comment on above: Result Comment: The specimen is NEGATIVE for SARS-CoV-2, the novel coronavirus associated with COVID-19. A negative result does not rule out COVID-19. This test has been authorized by the FDA under an Emergency Use Authorization (EUA) for use by authorized laboratories. [employer] SARS-CoV-2 Reagents for [employer] are designed to detect the virus that causes COVID-19 in patients with signs and symptoms of infection who are suspected of COVID-19. An individual without symptoms of COVID-19 and who is not shedding SARS-CoV-2 virus would expect to have a negative (not detected) result in this assay. Fact sheet for Healthcare Providers: https://www.fda.gov/media/947716/download Fact sheet for Patients: https://www.fda.gov/media/034039/download METHODOLOGY: RT-PCR Performed By: #### C OVID #### [address] [id number] Electric Switch Tester: Rex Anthony MD SARS-CoV-2,Rapid Normal [facility] Comment on above: Performed By: #### C OVID #### [address] [id number] Electric Switch Tester: Rex Anthony MD [id number] 08-20-2020 SARS-CoV-2 Source .NASOPHARYNGEAL SWAB Normal [facility] Comment on above: Performed By: #### C OVID #### [address] [id number] Electric Switch Tester: Rex Anthony MD [id number] 08-08-2020 SARS-CoV-2 Not Detected Normal Not Detected [facility] Comment on above: Result Comment: (NOT E) This nucleic acid amplification test was developed and its performance characteristics determined by [employer]. Nucleic acid amplification tests include PCR and TMA. This test has not been FDA cleared or approved. This test has been authorized by FDA under an Emergency Use Authorization (EUA). This test is only authorized for the duration of time the declaration that circumstances exist justifying the authorization of the emergency use of in vitro diagnostic tests for detection of SARS-CoV-2 virus and/or diagnosis of COVID-19 infection under section 564(b)(1) of the Act, 21 U.S.C. 360bbb-3(b) (1), unless the authorization is terminated or revoked sooner. When diagnostic testing is negative, the possibility of a false negative result should be considered in the context of a patient's recent exposures and the presence of clinical signs and symptoms consistent with COVID-19. An individual without symptoms of COVID- 19 and who is not shedding SARS-CoV-2 virus would expect to have a negative (not detected) result in this assay. Performed At: [address] [id number] Doris Bolanos PhD Ph:[phone] Performed By: #### A COV #### [facility] [address] [place] [address] Electric Switch Tester: Massiel Ng MD [id number] 08-01-2020 SARS-CoV-2 Not Detected Normal Not Detected [facility] Comment on above: Result Comment: (NOT E) This nucleic acid amplification test was developed and its performance characteristics determined by [employer]. Nucleic acid amplification tests include PCR and TMA. This test has not been FDA cleared or approved. This test has been authorized by FDA under an Emergency Use Authorization (EUA). This test is only authorized for the duration of time the declaration that circumstances exist justifying the authorization of the emergency use of in vitro diagnostic tests for detection of SARS-CoV-2 virus and/or diagnosis of COVID-19 infection under section 564(b)(1) of the Act, 21 U.S.C. 360bbb-3(b) (1), unless the authorization is terminated or revoked sooner. When diagnostic testing is negative, the possibility of a false negative result should be considered in the context of a patient's recent exposures and the presence of clinical signs and symptoms consistent with COVID-19. An individual without symptoms of COVID- 19 and who is not shedding SARS-CoV-2 virus would expect to have a negative (not detected) result in this assay. Performed At: [facility] [address] [place], [place] [id number] Óscar Painter MD Ph:[phone] Performed By: #### A COV #### [facility] [address] [place] [address] Electric Switch Tester: Massiel Ng MD [id number] 07-17-2020 SARS-CoV-2 Not Detected Normal Not Detected [facility] Comment on above: Result Comment: (NOT E) This nucleic acid amplification test was developed and its performance characteristics determined by [employer]. Nucleic acid amplification tests include PCR and TMA. This test has not been FDA cleared or approved. This test has been authorized by FDA under an Emergency Use Authorization (EUA). This test is only authorized for the duration of time the declaration that circumstances exist justifying the authorization of the emergency use of in vitro diagnostic tests for detection of SARS-CoV-2 virus and/or diagnosis of COVID-19 infection under section 564(b)(1) of the Act, 21 U.S.C. 360bbb-3(b) (1), unless the authorization is terminated or revoked sooner. When diagnostic testing is negative, the possibility of a false negative result should be considered in the context of a patient's recent exposures and the presence of clinical signs and symptoms consistent with COVID-19. An individual without symptoms of COVID- 19 and who is not shedding SARS-CoV-2 virus would expect to have a negative (not detected) result in this assay. Performed At: [facility] [address] [place], [place] [id number] Óscar Painter MD Ph:[phone] Performed By: #### A COV #### [facility] [address] [place] [address] Electric Switch Tester: Massiel Ng MD BARIUM SWALLOW SINGLE CONTRA STon 06-30-2020 BARIUM SWALLOW SINGLE CONTRAST [facility] Name: RADHA DRAKE: 1960 Unit #: [id number] Age: 59 Attending Physician: DREAD JENSEN M.D. Pt Location: 4W 419 Date of Service: 06/30/20 BARIUM SWALLOW SINGLE CONTRAST HISTORY: Status post sleeve gastrectomy. Follow-up Study: Single contrast Gastrografin swallow dated 06/30/2020. 9:48 a.m. TECHNIQUE: 30 ml of Gastrografin was administered orally. Fluoroscopy time was 0.7 minutes. Fluoroscopy dose was 44.66mGy. Findings: Esophageal motility and mucosa are normal. There is free flow into the stomach. No evidence of extravasation. There is free flow through the gastric sleeve and into the duodenum. IMPRESSION: Good postoperative appearance of gastric sleeve procedure. Good flow into the stomach and into the duodenum. EXAM/ORDER VERIFICATION: Y PT/FAMILY VERBALIZES UNDERSTANDING OF EXAM Y PT SHIELDED N Is pt ? [facility] TECH INITIALS AR COMMENTS Electronically Signed by: MASSIEL CHAPPELL M.D. 06/30/2042 MASSIEL CHAPPELL M.D. Date Dict: 06/30/20937 MASSIEL CHAPPELL M.D. Date Trans: 06/30/20937 [facility] [id number] cc: [facility] DREAD JENSEN M.D., MARC A MD [facility] 06-30-2020 [facility] Name: RADHA DRAKE : 1960 Unit: [id number] Age: 59 Attending Physician: DREAD JENSEN M.D. Pt Location: 4W 419 Date of Service: REPORT OF CONSULTATION DATE OF SERVICE: 06/30/20 REASON FOR CONSULT: Medical management. HISTORY OF PRESENT ILLNESS: This is a 59-year old female who has a history of morbid obesity. She had a lap band in the past. Recently she had issues with that and started to gain weight. The decision was made for her to proceed with sleeve gastrectomy with Dr. Jensen which was done yesterday. She was admitted after the procedure. She did well overnight. She had a swallow study this morning and she complains of some nausea, but she not vomited yet. She denies any chest pain or shortness of breath. PAST HISTORY: MEDICAL: Significant for morbidity obesity, acid reflux. SURGERIES: History of lap band, tubal ligation. CURRENT MEDICATIONS: Reviewed. ALLERGIES: Sulfa and penicillin. FAMILY HISTORY: Noncontributory. SOCIAL HISTORY: She does not smoke. She occasionally drinks alcohol. REVIEW OF SYSTEMS: Noncontributory. PHYSICAL EXAMINATION: VITAL SIGNS: Temperature 97.7, pulse 73, respirations 14, blood pressure 159/87. O2 saturation is 94% on room air. GENERAL: She is awake, alert, and oriented in no respiratory distress. HEART: Normal S1, S2. No murmur. CHEST: Good air entry bilaterally. No wheezes or rales. ABDOMEN: There is some tenderness at the surgical site. No rebound tenderness. ASSESSMENT: Status post sleeve gastrectomy. The patient is doing well surgically. She does not have many medical issues and she is overall stable. PLAN: No objection to discharge patient home from the surgical standpoint Electronically Signed by: IZZY VERDUGO MD 06/30/20 1408 IZZY VERDUGO MD Date Dict: 06/30/20 1202 [facility]ZZY VERDUGO [facility] Date trans: 06/30/20 1316 [id number] cc: IZZY VERDUGO MD[facility] DREAD JENSEN M.D., MARC A MD [facility] [id number] 06-30-2020 [id number] Name: RADHA DRAKE DO B: 1960 Unit #: [id number] Age: 59 Family Physician: Pt Location: [facility] Service Date 06/30/20 Physician/Provider: DREAD JENSEN M.D. [facility] Discharge Summary Assessment Pt. underwent a laparoscopic removal of a gastric band, followed by lap sleeve gastrectomy for morbid obesity. She did well following surgery and and upper GI study the next day did not reveal any leak or obstruction of the stomach. She tolerated a clear liquid diet with mild nausea, but no vomiting and was discharged home on a clear liquid diet with protein shakes for the next 2 weeks. F/U with Dr Jensen. SHRADDHA HARO M.D. Jun 30, 2020 14:35 Electronically Signed by: SHRADDHA HARO M.D. 06/30/20 1624 SHRADDHA HARO M.D. [phone] [facility] [facility] Name: RADHA DRAKE : 1960 Unit: [id number] Age: 59 Attending Physician: DREAD JENSEN M.D. Pt Location: [facility] Date of Service: PROGRESS NOTE DATE OF SERVICE: 06/30/20 SUBJECTIVE: The patient reported mild discomfort in her trocar wounds. She had started drinking clear liquids this morning and reported mild nausea, but no vomiting or dysphagia. She underwent an upper gastrointestinal study which showed passage of contrast through the remnant of her stomach without any evidence of leak or stenosis. OBJECTIVE: The patient was afebrile, pulse 73, respirations 16, blood pressure 159/87, and pulse ox 945 on room air. She was morbidly obese with body mass index of 43. ABDOMEN: Obese, soft, and nontender at the multiple trocar wounds. Results of the gastrointestinal study as above. ASSESSMENT: Status post laparoscopic removal of gastric band and gastric sleeve resection for morbid obesity. PLAN: The patient will be allowed a clear liquid diet. If she tolerates this well she will be allowed to go home later this afternoon with a prescription for Lortab Elixir for her post- operative pain. She will stay on the clear liquids with protein shakes for the next couple weeks and then see Dr. Jensen for follow up. Electronically Signed by: SHRADDHA HARO M.D. 06/30/20 1624 SHRADDHA HARO M.D. Date Dict: 06/30/20 SHRADDHA HARO M.D. Date trans: 06/30/20 [phone] cc: SHRADDHA HARO M.D. [facility] 06-29-2020 [facility] Name: RADHA DRAKE : 1960 Unit: [id number] Age: 59 Attending Physician: DREAD JENSEN M.D. Location: [facility] Date of Service: HISTORY DATE OF SERVICE: 06/29/2020 CHIEF COMPLAINT: Ms. Drake is a 58-year-old that has been through the preoperative evaluation program for weight loss surgery and was felt to be a good candidate. PRESENT ILLNESS: She has had a lap and in the past and this has been ineffective for her. She presents at this time for lap band removal and a sleeve gastrectomy. PAST HISTORY: MEDICAL: Reflux that is well controlled on omeprazole. SURGICAL: Lap band, tubal ligation, no other surgical procedures. MEDICATIONS: Omeprazole. ALLERGIES: Sulfa, penicillin. FAMILY HISTORY: Noncontributory. SOCIAL HISTORY: She denies alcohol or tobacco use or any other illicit drug use. SYSTEMS REVIEW: Negative except as noted above. PHYSICAL EXAMINATION: GENERAL: Alert and oriented. CHEST: Clear to auscultation. HEART: Regular rate and rhythm. ABDOMEN: Soft, nontender, obese. EXTREMITIES: Full range of motion times four. IMPRESSION: Morbid obesity. Status post lap band. PLAN: Removal of lap band and conversion to a sleeve gastrectomy. She understands the nature and purpose of the planned procedure, risks, benefits, alternatives, and agrees to proceed. Electronically Signed by: DREAD JENSEN M.D. 06/29/20 1640 DREAD JENSEN M.D. Date Dict: 06/29/20 1219 DREAD JENSEN M.D. Date trans: 06/29/20 1220 [facility] [phone] cc: [facility] DREAD JENSEN M.D., MARC A MD [facility] PATHOLOGYon 06-29-[address] CLIA # [id number] -------- Name: RADHA DRAKE Age/Sex: 59/F Attend Dr: DREAD JENSEN M.D. Unit#: [id number] Status: DIS IN Location: 419-1 Re06/29/20 Disch: 06/30/20 : 1960 -------- CLINICAL DIAGNOSIS Dysphagia, GERD, morbid obesity SURGICAL PROCEDURE: Lap band removal, laparoscopic sleeve gastrectomy PERTINENT CLINICAL INFORMATION: Intraabdominal adhesions 1. Stomach, NOS - LAP BAND, GROSS ONLY 2. Stomach, NOS - PORTION OF STOMACH, GROSS ONLY GROSS DESCRIPTION Specimen #1: The specimen is labeled as lap band. It is received in formalin and consists of a grossly unremarkable lap band. The access port has an inscription Port-A-Cath [id number] . Specimen is for gross assessment only. Specimen #2: The specimen is labeled as portion of stomach. It is received in formalin and consists of a C-shaped portion of the stomach. It is closed by brayden at the greater curvature. The greater curvature measures 26cm and the lesser curvature measures 17cm and ranges from 2.3cm to 5.5cm in diameter. The center, which is about 9.2cm away from one line of resection, has an area that shows stricture up to 2.2cm in diameter, most probably from the lap band. The serosal surface of the stomach shows moderate fibrous adhesions. On opening the stomach, it mostly shows normal rugal folds, but in some areas, mostly in the center, it is slightly flattened and granular. This area measures 7 x 5.5cm. No gross tumor or polyp seen. Specimen is for gross assessment only. MCP GROSS DIAGNOSIS Specimen #1: Removal of lap band. Code 3 Specimen #2: Laparoscopic sleeve gastrectomy:- Portion of stomach with serosal adhesions, clinically for morbid obesity. Code [address] Bobbi Sherman on 06/30/2020 at 1413. Transcribed by:07/01/20 - 1210 [facility] C[facility]: Stomach, NOS COPIES TO: IZZY VERDUGO MD-[facility] [address] [place] [address] [address] [place] [address] DREAD JENSEN M.D. [address] [place], [place] [id number] LABORATORY [address] CLIA # [id number] -------- Name: RADHA DRAKE Age/Sex: 59/F Attend Dr: DREAD JENSEN M.D. Unit#: [id number] Status: DIS IN Location: 4 419-1 Re06/29/20 Disch: 06/30/20 : 1960 -------- COPIES TO: (Continued) BILLY MARK MD [address] [place] [address] PROCEDURES: NONMIC (06/30/20-1037) Signed (signature on file) Bobbi Sherman M.D 07/01/20 1238 -------- LABORATORY Normal [facility] Comment on above: Performed By: #### G RSDIAG ####[facility] # [id number] [place] [address] [facility] Name: RADHA DRAKE : 1960 Unit: [id number] Age: 59 Attending Physician: DREAD JENSEN M.D. Pt Location: 4 419 Date of Service: REPORT OF OPERATION DATE OF PROCEDURE: 06/29/2020 PREOPERATIVE DIAGNOSIS: Morbid obesity. Dysphagia with lap band filled and weight regain with lap band empty. POSTOPERATIVE DIAGNOSIS: Morbid obesity. Dysphagia with lap band filled and weight regain with lap band empty. Intraabdominal adhesions. SURGEON: Patrica Jensen M.D. ASSISTANTS: OPERATION: Diagnostic laparoscopy. Laparoscopic lysis of adhesions. Removal of lap band. Sleeve gastrectomy. Intraoperative esophagogastroduodenoscopy. ANESTHESIA: General endotracheal tube. PROCEDURE: The patient was brought to the room. After appropriate time out and appropriate monitoring and introduction of general anesthesia, the area of the abdomen was prepped and draped in the usual fashion. The left subcostal incision was anesthetized and a Veress needle was inserted through here. The abdomen was insufflated and using a Visiport the abdomen was entered into with a camera. Then a 15 mm port was placed adjacent to the port through the same incision for the band. We then placed two more left sided 5 mm ports and a right sided 5 mm port using the old incisions. After having done this, we then traced the tubing up to the band. We freed the fundoplication and lysed a large number of adhesions between the stomach and the undersurface of the liver and freed up the fundoplication. We were able to transect the band and removed the band from around the top of the stomach and put it to the side. We then took the greater curvature using a harmonic. We went all the way from 6 cm proximal to the pylorus, all the way along the greater curvature, all the way around the fundus all the way up to the angle of His. We freed up adhesions between the posterior wall of the stomach and the pancreas. After having completely freed up the entire stomach, we then had a second time out and took out all the esophageal stethoscope and orogastric tube and placed a bougie. We then fired a stapler starting at the antrum and making sure we did not make it too tight at the incisura. We stapled along the bougie all the way up to the angle of His. We transected the greater curve completely. We then sewed the omentum back over the staple line suing a V lock suture. We then enlarged the incision where we had the 15 mm port to include the tubing from the band and we were able to remove the band and the tubing and the port all as one unit through this incision. We then brought the stomach out through this incision. We then closed this incision using a suture passer. We then reinsufflated the abdomen and put saline over the stomach and introduced an esophagogastroduodenoscopy scope and saw no evidence of bubbling. The scope passed easily and readily through the stomach and into the duodenum. No evidence of obstruction, no evidence of bubble or leak. The scope was removed. Air was suctioned out. The abdomen was desufflated. The trochars were removed and the wounds were closed using subcuticular suture. Dressings were applied. The patient was taken to the recovery area in satisfactory condition, having tolerated the procedure well. The plan will be to observe her overnight and try a swallow tomorrow. If the Gastrografin swallow does not show any leak or obstruction we would then start her on liquids. If she tolerates liquids we would go ahead and discharge her later tomorrow to follow up with me and her primary care doctor as an out-patient. Electronically Signed by: DREAD JENSEN M.D. 06/29/20 1640 DREAD JENSEN M.D. Date Dict: 06/29/201513 DREAD JENSEN M.D. Date trans: 06/29/20 1518 [facility] [phone] cc: [facility] DREAD JENSEN M.D., MARC A MD Normal [facility] CBCon 06-19-2020 Erythrocyte distribution width (RBC) [Ratio] 12.9 % Normal 12.2-15.8 [facility] Comment on above: Performed By: #### C BCN ####[facility]IA # [id number] [place] [address] Hematocrit (Bld) [Volume fraction] 39.5 % Normal 34.6-44.1 [facility] Comment on above: Performed By: #### C BCN ####[facility]IA # [id number] [place] [address] Hemoglobin (Bld) [Mass/Vol] 12.8 g/dL Normal 11.7-14.9 [facility] Comment on above: Performed By: #### C BCN ####[facility]IA # [id number] [place] [address] MCH (RBC) [Entitic mass] 32.4 g/dL Low 32.7-34.8 [facility] Comment on above: Performed By: #### C BCN ####[facility] # [id number] [place] [address] MCH (RBC) [Entitic mass] 26.6 pg Low 27.8-33.2 [facility] Comment on above: Performed By: #### C BCN ####[facility] # [id number] [place] [address] MCV (RBC) [Entitic vol] 82.1 fL Low 83.0-97.4 [facility] Comment on above: Performed By: #### C BCN ####[facility] # [id number] [address] [place] [address] Platelet mean volume (Bld) [Entitic vol] 10.0 fL Normal 7.6-10.6 [facility] Comment on above: Performed By: #### C BCN ####[facility] # [id number] [address] [place] [address] Platelets (Bld) [#/Vol] 266 10'3/uL Normal 122-359 [facility] Comment on above: Performed By: #### C BCN ####[facility] # [id number] [place] [address] RBC (Bld) [#/Vol] 4.81 10'6/uL Normal 3.85-4.88 [facility] Comment on above: Performed By: #### C BCN ####[facility] # [id number] [place] [address] WBC (Bld) [#/Vol] 5.2 10'3/uL Normal 3.2-9.3 [facility] Comment on above: Performed By: #### C BCN ####[facility] # [id number] [place] [address] COMPREHENSIVE METABOLIC PROF on 06-19-2020 GFR/1.73 sq M.predicted MDRD (S/P/Bld) [Vol rate/Area] mL/min/{1.73_m2} Normal ml/min/1.7 3m2 [facility] Comment on above: Result Comment: GFR values >60 are not clinically significant. Performed By: #### T SH, LIPPRO, T4, CM ####[facility] # [id number] [place] [address] Albumin [Mass/Vol] 4.4 g/dL Normal 3.5-5.2 [facility] Comment on above: Performed By: #### T SH, LIPPRO, T4, CM ####[facility] # [id number] [place] [address] ALP [Catalytic activity/Vol] 44 U/L Normal 40-150 [facility] Comment on above: Performed By: #### T SH, LIPPRO, T4, CM ####[facility] # [id number] [place] [address] ALT/SGPT 25 U/L Normal 0-55 [facility] Comment on above: Performed By: #### T SH, LIPPRO, T4, CM ####[facility] # [id number] [place] [address] Anion gap [Moles/Vol] 12 mmol/L Normal 5-13 [facility] Comment on above: Performed By: #### T SH, LIPPRO, T4, CM ####[facility] # [id number] [place] [address] AST/SGOT 26 U/L Normal 5-34 [facility] Comment on above: Performed By: #### T SH, LIPPRO, T4, CM ####[facility] # [id number] [place] [address] Bilirubin [Mass/Vol] 0.5 mg/dL Normal 0.0-1.0 [facility] Comment on above: Performed By: #### T SH, LIPPRO, T4, CM ####[facility] # [id number] [place] [address] Calcium [Mass/Vol] 9.7 mg/dL Normal 8.4-10.2 [facility] Comment on above: Performed By: #### T SH, LIPPRO, T4, CM ####[facility] # [id number] [place] [address] Chloride [Moles/Vol] 99 mmol/L Normal 98-107 [facility] Comment on above: Performed By: #### T SH, LIPPRO, T4, CM ####[facility]IA # [id number] [place] [address] CO2 [Moles/Vol] 28 mmol/L Normal 22-29 [facility] Comment on above: Performed By: #### T SH, LIPPRO, T4, CM ####[facility] # [id number] [place] [address] Creatinine [Mass/Vol] 0.99 mg/dL Normal 0.57-1.11 [facility] Comment on above: Performed By: #### T SH, LIPPRO, T4, CM ####[facility] # [id number] [place] [address] Glucose [Mass/Vol] 97 mg/dL Normal 70-99 [facility] Comment on above: Performed By: #### T SH, LIPPRO, T4, CM ####[facility] # [id number] [place] [address] Potassium [Moles/Vol] 3.5 mmol/L Normal 3.5-5.1 [facility] Comment on above: Performed By: #### T SH, LIPPRO, T4, CM ####[facility] # [id number] [place] [address] Protein [Mass/Vol] 7.6 g/dL Normal 6.4-8.2 [facility] Comment on above: Performed By: #### T SH, LIPPRO, T4, CM ####[facility] # [id number] [place] [address] Sodium [Moles/Vol] 139 mmol/L Normal 136-145 [facility] Comment on above: Performed By: #### T SH, LIPPRO, T4, CM ####[facility] # [id number] [place] [address] Urea nitrogen [Mass/Vol] 9 mg/dL Normal 7-18 [facility] Comment on above: Performed By: #### T SH, LIPPRO, T4, CM ####[facility] # [id number] [place] [address] [id number] 06-19-2020 HbA1c (Bld) [Mass fraction] 5.5 % Normal 4.0-5.6 [facility] Comment on above: Performed By: #### H BA1C ####[facility] # [id number] [place] [address] HbA1c (Bld) [Mass fraction] 111 mg/dL Normal [facility] Comment on above: Result Comment: THE SUGGESTED GOAL OF THERAPY FOR THOSE DIAGNOSED WITH DIABETES IS A HEMOGLOBIN A1c VALUE OF LESS THAN 7.0%. RESULTS GREATER THAN 8.0% WARRANT THE NEED TO REASSESS TREATMENT REGIMEN. A1c VALUE INTERPRETATION <5.7 Non-Diabetic 5.7-6.4 Increased Risk of Diabetes >or=6.5 Consistent with Diabetes Caution should be exercised when interpreting the HbA1c results from patients with total hemoglobin <9.0g. Reference: Standards of Medical Care in Diabetes-2017 Diabetes Care 2017 Jul; 40 (Supplement 1): S11-S14 Performed By: #### H BA1C ####[facility] # [id number] [place] [address] LIPID PROFILEon 06-19-2020 Cholesterol [Mass/Vol] 297 mg/dL Normal <200 [facility] Comment on above: Performed By: #### T SH, LIPPRO, T4, CM ####[facility] # [id number] [place] [address] Cholesterol in HDL [Mass/Vol] 64 mg/dL High 45-60 [facility] Comment on above: Performed By: #### T SH, LIPPRO, T4, CM ####[facility] # [id number] [place] [address] Cholesterol in LDL [Mass/Vol] 206 mg/dL High <100 [facility] Comment on above: Performed By: #### T SH, LIPPRO, T4, CM ####[facility] # [id number] [place] [address] CHOLESTEROL RISK RATIO 4.64 Normal [facility] Comment on above: Result Comment: DETE RMINATION OF RISK FACTORS BASED UPON PATIENT TEST RESULTS ACCORDING TO ADULT TREATMENT PANEL (ATP)III,2001 GUIDELINES OF NATIONAL CHOLESTEROL EDUCATION PROGRAM (NCEP). Triglyceride Cholesterol HDL Chol LDL Ratio Desirable: <150 mg/dl <200 mg/dl >60 mg/dl <100 <3.5 Borderline: 150-199 200-239 40-59 130-159 3.5-5 High Risk: >200 >240 <40 >160 >5.0 It should be noted that there are other factors which contribute to the determination of one's Total Risk Factor for Coronary Heart Disease. These include: age, stress, obesity, activity level, diet, smoking, and heredity. Performed By: #### T SH, LIPPRO, T4, CM ####[facility] # [id number] [place] [address] Triglyceride [Mass/Vol] 135 mg/dL Normal <150 [facility] Comment on above: Performed By: #### T SH, LIPPRO, T4, CM ####[facility] # [id number] [place] [address] VERY LOW DENSITY LIPID 27 mg/dl Normal 5-35 [facility] Comment on above: Performed By: #### T SH, LIPPRO, T4, CM ####[facility] # [id number] [place] [address] THYROXINE (T4)on 06-19-2020 T4 [Mass/Vol] 6.8 ug/dL Normal 4.8-13.9 [facility] Comment on above: Performed By: #### T SH, LIPPRO, T4, CM ####[facility] # [id number] [place] [address] TSH 3RD GENERATIONon 020 TSH 3RD GENERATION 1.000 uIU/mL Normal 0.358-3.74 [facility] Comment on above: Performed By: #### T SH, LIPPRO, T4, CM ####[facility] # [id number] [place] [address] [id number] 05-23-2020 SARS-CoV-2 Not Detected Normal Not Detected [facility] Comment on above: Result Comment: (NOT E) This nucleic acid amplification test was developed and its performance characteristics determined by [employer]. Nucleic acid amplification tests include PCR and TMA. This test has not been FDA cleared or approved. This test has been authorized by FDA under an Emergency Use Authorization (EUA). This test is only authorized for the duration of time the declaration that circumstances exist justifying the authorization of the emergency use of in vitro diagnostic tests for detection of SARS-CoV-2 virus and/or diagnosis of COVID-19 infection under section 564(b)(1) of the Act, 21 U.S.C. 360bbb-3(b) (1), unless the authorization is terminated or revoked sooner. When diagnostic testing is negative, the possibility of a false negative result should be considered in the context of a patient's recent exposures and the presence of clinical signs and symptoms consistent with COVID-19. An individual without symptoms of COVID- 19 and who is not shedding SARS-CoV-2 virus would expect to have a negative (not detected) result in this assay. Performed At: [facility] [address] [place], [place] [id number] [facility] Ph:[phone] Performed By: #### A COV #### [facility] [address] [place] [address] Electric Switch Tester: Massiel Ng MD BREATH ALCOHOLon 05-21-2020 BREATH ALCOHOL SEE SEPARATE REPORT Normal F [facility] Comment on above: Performed By: #### D RADHA BREATHBARI ####[facility] # [id number] [address] [place] [address] RAPID 5 PANEL DRUG SCREENon 05-21-2020 RAPID 5 PANEL DRUG SCREEN SEE SEPARATE REPORT Normal [facility] Comment on above: Performed By: #### D RADHA BREATHBARI ####[facility] # [id number] [place] [address] BILIRUBIN,DIRECTon 0 Bilirubin.direct [Mass/Vol] 0.2 mg/dL Normal 0.1-0.5 [facility] Comment on above: Order Comment: FASTI NG Performed By: #### T SH, LIPPRO, CM, T4, DBIL #### [facility] CLIA # [id number] [address] [facility] [place] [address] CHEST 2 VIEW (PA LATERAL)on 05-20-2020 CHEST 2 VIEW (PA LATERAL) [facility] Name: RADHA DRAKE : 1960 Unit #: [id number] Age: 59 Attending Physician: DREAD JENSEN M.D. Pt Location: [facility] Date of Service: 05/20/20 CHEST 2 VIEW (PA LATERAL) HISTORY: Preop Study: PA and lateral chest dated 05/20/2020. 9:16 a.m. FINDINGS: The cardiomediastinal silhouette appears normal. The lungs are clear. No pleural fluid. IMPRESSION: No evidence of acute chest disease. EXAM/ORDER VERIFICATION: Y PT/FAMILY VERBALIZES UNDERSTANDING OF EXAM Y PT SHIELDED Y Is pt ? LMP TECH INITIALS KZ COMMENTS PT WORE MASK, TECH/STUDENT WORE MASKS Electronically Signed by: MASSIEL CHAPPELL M.D. 05/20/20 1130 MASSIEL CHAPPELL M.D. Date Dict: 05/20/207 MASSIEL CHAPPELL M.D. Date Trans: 05/20/20 1127 [facility] [phone] cc: DREAD JENSEN M.D., MARC A MD Normal [facility] COMPLETE BLOOD COUNT W/DIFFo n 05-20-2020 Basophils (Bld) [#/Vol] 0.0 10'3/uL Low 0.1-0.2 [facility] Comment on above: Order Comment: FASTI NG Performed By: #### C BCD #### [facility] CLIA # [id number] [address] [place] [address] Basophils/100 WBC (Bld) 0.9 % Normal 0.0-1.7 [facility] Comment on above: Order Comment: FASTI NG Performed By: #### C BCD #### [facility] CLIA # [id number] [address] [place] [address] Eosinophils (Bld) [#/Vol] 0.2 10'3/uL Normal 0.0-0.4 [facility] Comment on above: Order Comment: FASTI NG Performed By: #### C BCD #### [facility] CLIA # [id number] [address] [place] [address] Eosinophils/100 WBC (Bld) 3.8 % Normal 0.0-6.4 [facility] Comment on above: Order Comment: FASTI NG Performed By: #### C BCD #### [facility] CLIA # [id number] [address] [place] [address] Erythrocyte distribution width (RBC) [Ratio] 12.7 % Normal 12.2-15.8 [facility] Comment on above: Order Comment: FASTI NG Performed By: #### C BCD #### [facility] CLIA # [id number] [address] [place] [address] Hematocrit (Bld) [Volume fraction] 36.9 % Normal 34.6-44.1 [facility] Comment on above: Order Comment: FASTI NG Performed By: #### C BCD #### [facility] CLIA # [id number] [address] [place] [address] Hemoglobin (Bld) [Mass/Vol] 11.7 g/dL Normal 11.7-14.9 [facility] Comment on above: Order Comment: FASTI NG Performed By: #### C BCD #### [facility] CLIA # [id number] [address] [place] [address] Lymphocytes (Bld) [#/Vol] 1.2 10'3/uL Normal 0.5-3.5 [facility] Comment on above: Order Comment: FASTI NG Performed By: #### C BCD #### [facility] CLIA # [id number] [address] [place] [address] Lymphocytes/100 WBC (Bld) 27.8 % Normal 17.4-45.9 [facility] Comment on above: Order Comment: FASTI NG Performed By: #### C BCD #### [facility] CLIA # [id number] [address] [facility] [place] [address] MCH (RBC) [Entitic mass] 27.3 pg Low 27.8-33.2 [facility] Comment on above: Order Comment: FASTI NG Performed By: #### C BCD #### [facility] CLIA # [id number] [address] [facility] [place] [address] MCH (RBC) [Entitic mass] 31.7 g/dL Low 32.7-34.8 [facility] Comment on above: Order Comment: FASTI NG Performed By: #### C BCD #### [facility] CLIA # [id number] [address] [facility] [place] [address] MCV (RBC) [Entitic vol] 86.2 fL Normal 83.0-97.4 [facility] Comment on above: Order Comment: FASTI NG Performed By: #### C BCD #### [facility] CLIA # [id number] [address] [place] [address] Monocytes (Bld) [#/Vol] 0.5 10'3/uL Normal 0.2-0.8 [facility] Comment on above: Order Comment: FASTI NG Performed By: #### C BCD #### [facility] CLIA # [id number] [address] [facility] [place] [address] Monocytes/100 WBC (Bld) 11.7 % Normal 4.4-12.0 [facility] Comment on above: Order Comment: FASTI NG Performed By: #### C BCD #### [facility] CLIA # [id number] [address] [place] [address] Neutrophils (Bld) [#/Vol] 2.5 10'3/uL Normal 1.5-5.6 [facility] Comment on above: Order Comment: FASTI NG Performed By: #### C BCD #### [facility] CLIA # [id number] [address] [place] [address] Neutrophils/100 WBC (Bld) 55.8 % Normal 41.2-72.1 [facility] Comment on above: Order Comment: FASTI NG Performed By: #### C BCD #### [facility] CLIA # [id number] [address] [place] [address] Platelet mean volume (Bld) [Entitic vol] 10.1 fL Normal 7.6-10.6 [facility] Comment on above: Order Comment: FASTI NG Performed By: #### C BCD #### [facility] CLIA # [id number] [address] [place] [address] Platelets (Bld) [#/Vol] 260 10'3/uL Normal 122-359 [facility] Comment on above: Order Comment: FASTI NG Performed By: #### C BCD #### [facility] CLIA # [id number] [address] [place] [address] RBC (Bld) [#/Vol] 4.28 10'6/uL Normal 3.85-4.88 [facility] Comment on above: Order Comment: FASTI NG Performed By: #### C BCD #### [facility] CLIA # [id number] [address] [place] [address] WBC (Bld) [#/Vol] 4.5 10'3/uL Normal 3.2-9.3 [facility] Comment on above: Order Comment: FASTI NG Performed By: #### C BCD #### [facility] CLIA # [id number] [address] [place] [address] COMPREHENSIVE METABOLIC PROF on 05-20-2020 GFR/1.73 sq M.predicted MDRD (S/P/Bld) [Vol rate/Area] mL/min/{1.73_m2} Normal ml/min/1.7 3m2 [facility] Comment on above: Order Comment: FASTI NG Result Comment: GFR values >60 are not clinically significant. Performed By: #### T SH, LIPPRO, CM, T4, DBIL #### [facility] CLIA # [id number] [address] [place] [address] Albumin [Mass/Vol] 4.2 g/dL Normal 3.5-5.2 [facility] Comment on above: Order Comment: FASTI NG Performed By: #### T SH, LIPPRO, CM, T4, DBIL #### [facility] CLIA # [id number] [address] [place] [address] ALP [Catalytic activity/Vol] 43 U/L Normal 40-150 [facility] Comment on above: Order Comment: FASTI NG Performed By: #### T SH, LIPPRO, CM, T4, DBIL #### [facility] CLIA # [id number] [address] [place] [address] ALT/SGPT 28 U/L Normal 0-55 [facility] Comment on above: Order Comment: FASTI NG Performed By: #### T SH, LIPPRO, CM, T4, DBIL #### [facility] CLIA # [id number] [address] [place] [address] Anion gap [Moles/Vol] 10 mmol/L Normal 5-13 [facility] Comment on above: Order Comment: FASTI NG Performed By: #### T SH, LIPPRO, CM, T4, DBIL #### [facility] CLIA # [id number] [address] [place] [address] AST/SGOT 37 U/L High 5-34 [facility] Comment on above: Order Comment: FASTI NG Performed By: #### T SH, LIPPRO, CM, T4, DBIL #### [facility] CLIA # [id number] [address] [place] [address] Bilirubin [Mass/Vol] 0.7 mg/dL Normal 0.0-1.0 [facility] Comment on above: Order Comment: FASTI NG Performed By: #### T SH, LIPPRO, CM, T4, DBIL #### [facility] CLIA # [id number] [address] [place] [address] Calcium [Mass/Vol] 9.3 mg/dL Normal 8.4-10.2 [facility] Comment on above: Order Comment: FASTI NG Performed By: #### T SH, LIPPRO, CM, T4, DBIL #### [facility] CLIA # [id number] [address] [place] [address] Chloride [Moles/Vol] 104 mmol/L Normal 98-107 [facility] Comment on above: Order Comment: FASTI NG Performed By: #### T SH, LIPPRO, CM, T4, DBIL #### [facility] CLIA # [id number] [address] [place] [address] CO2 [Moles/Vol] 27 mmol/L Normal 22-29 [facility] Comment on above: Order Comment: FASTI NG Performed By: #### T SH, LIPPRO, CM, T4, DBIL #### [facility] CLIA # [id number] [address] [place] [address] Creatinine [Mass/Vol] 0.87 mg/dL Normal 0.57-1.11 [facility] Comment on above: Order Comment: FASTI NG Performed By: #### T SH, LIPPRO, CM, T4, DBIL #### [facility] CLIA # [id number] [address] [place] [address] Glucose [Mass/Vol] 100 mg/dL High 70-99 [facility] Comment on above: Order Comment: FASTI NG Performed By: #### T SH, LIPPRO, CM, T4, DBIL #### [facility] CLIA # [id number] [address] [place] [address] Potassium [Moles/Vol] 3.9 mmol/L Normal 3.5-5.1 [facility] Comment on above: Order Comment: FASTI NG Performed By: #### T SH, LIPPRO, CM, T4, DBIL #### [facility] CLIA # [id number] [address] [place] [address] Protein [Mass/Vol] 7.0 g/dL Normal 6.4-8.2 [facility] Comment on above: Order Comment: FASTI NG Performed By: #### T SH, LIPPRO, CM, T4, DBIL #### [facility] CLIA # [id number] [address] [place] [address] Sodium [Moles/Vol] 141 mmol/L Normal 136-145 [facility] Comment on above: Order Comment: FASTI NG Performed By: #### T SH, LIPPRO, CM, T4, DBIL #### [facility] CLIA # [id number] [address] [place] [address] Urea nitrogen [Mass/Vol] 12 mg/dL Normal 7-18 [facility] Comment on above: Order Comment: FASTI NG Performed By: #### T SH, LIPPRO, CM, T4, DBIL #### [facility] CLIA # [id number] [address] [place] [address] [id number] 05-20-2020 HbA1c (Bld) [Mass fraction] 5.5 % Normal 4.0-5.6 [facility] Comment on above: Order Comment: FASTI NG Performed By: #### H BA1C ####[facility] # [id number] [place] [address] HbA1c (Bld) [Mass fraction] 111 mg/dL Normal [facility] Comment on above: Order Comment: FASTI NG Result Comment: THE SUGGESTED GOAL OF THERAPY FOR THOSE DIAGNOSED WITH DIABETES IS A HEMOGLOBIN A1c VALUE OF LESS THAN 7.0%. RESULTS GREATER THAN 8.0% WARRANT THE NEED TO REASSESS TREATMENT REGIMEN. A1c VALUE INTERPRETATION <5.7 Non-Diabetic 5.7-6.4 Increased Risk of Diabetes >or=6.5 Consistent with Diabetes Caution should be exercised when interpreting the HbA1c results from patients with total hemoglobin <9.0g. Reference: Standards of Medical Care in Diabetes-2017 Diabetes Care 2017 Jul; 40 (Supplement 1): S11-S14 Performed By: #### H BA1C ####[facility] # [id number] [place] [address] LIPID PROFILEon 05-20-2020 Cholesterol [Mass/Vol] 243 mg/dL Normal <200 [facility] Comment on above: Order Comment: FASTI NG Performed By: #### T SH, LIPPRO, CM, T4, DBIL #### [facility] CLIA # [id number] [address] [place] [address] Cholesterol in HDL [Mass/Vol] 56 mg/dL Normal 45-60 [facility] Comment on above: Order Comment: FASTI NG Performed By: #### T SH, LIPPRO, CM, T4, DBIL #### [facility] CLIA # [id number] [address] [place] [address] Cholesterol in LDL [Mass/Vol] 163 mg/dL High <100 [facility] Comment on above: Order Comment: FASTI NG Performed By: #### T SH, LIPPRO, CM, T4, DBIL #### [facility] CLIA # [id number] [address] [place] [address] CHOLESTEROL RISK RATIO 4.34 Normal [facility] Comment on above: Order Comment: FASTI NG Result Comment: DETE RMINATION OF RISK FACTORS BASED UPON PATIENT TEST RESULTS ACCORDING TO ADULT TREATMENT PANEL (ATP)III,2001 GUIDELINES OF NATIONAL CHOLESTEROL EDUCATION PROGRAM (NCEP). Triglyceride Cholesterol HDL Chol LDL Ratio Desirable: <150 mg/dl <200 mg/dl >60 mg/dl <100 <3.5 Borderline: 150-199 200-239 40-59 130-159 3.5-5 High Risk: >200 >240 <40 >160 >5.0 It should be noted that there are other factors which contribute to the determination of one's Total Risk Factor for Coronary Heart Disease. These include: age, stress, obesity, activity level, diet, smoking, and heredity. Performed By: #### T SH, LIPPRO, CM, T4, DBIL #### [facility] CLIA # [id number] [address] [place] [address] Triglyceride [Mass/Vol] 122 mg/dL Normal <150 [facility] Comment on above: Order Comment: FASTI NG Performed By: #### T SH, LIPPRO, CM, T4, DBIL #### [facility] CLIA # [id number] [address] [place] [address] VERY LOW DENSITY LIPID 24 mg/dl Normal 5-35 [facility] Comment on above: Order Comment: FASTI NG Performed By: #### T SH, LIPPRO, CM, T4, DBIL #### [facility] CLIA # [id number] [address] [place] [address] THYROXINE (T4)on 05-20-2020 T4 [Mass/Vol] 6.6 ug/dL Normal 4.8-13.9 [facility] Comment on above: Order Comment: FASTI NG Performed By: #### T SH, LIPPRO, CM, T4, DBIL #### [facility] CLIA # [id number] [address] [place] [address] TSH 3RD GENERATIONon 020 TSH 3RD GENERATION 0.887 uIU/mL Normal 0.358-3.74 [facility] Comment on above: Order Comment: FASTI NG Performed By: #### T SH, LIPPRO, CM, T4, DBIL #### [facility] CLIA # [id number] [address] [place] [address] UPPER GI SERIES DOUBLE CONTR ASon 05-20-2020 UPPER GI SERIES DOUBLE CONTRAS [facility] Name: RADHA DRAKE : 1960 Unit #: [id number] Age: 59 Attending Physician: DREAD JENSEN M.D., Pt Location: [facility] Date of Service: 05/20/20 UPPER GI SERIES DOUBLE CONTRAS HISTORY: Dysphagia. Preop. Study: Double contrast upper GI dated 05/20/2020. 9:33 a.m. Findings: A lap band is in place. Esophageal motility and mucosa are normal. There is free flow into the stomach. Gastric and duodenal mucosa are normal without evidence of ulcerations or erosions. IMPRESSION: Lap band is in place. No evidence of reflux. There is free flow into the stomach. No gastric or duodenal abnormalities. EXAM/ORDER VERIFICATION: Y PT/FAMILY VERBALIZES UNDERSTANDING OF EXAM Y PT SHIELDED N Is pt ? LMP TECH INITIALS KZ COMMENTS PT WORE MASK, TECH/STUDENT WORE MASKS Electronically Signed by: MASSIEL CHAPPELL M.D. 05/20/208 MASSIEL CHAPPELL M.D. Date Dict: 05/20/201104 MASSIEL CHAPPELL M.D. Date Trans: 05/20/201104 [facility] [phone] cc: DREAD JENSEN M.D., MARC A MD [facility] Addendum Name: RADHA DRAKE : 1960 Unit #: [id number] Age: 59 Attending Physician: DREAD JENSEN M.D. Pt Location: [facility] Date of Service: 05/20/20 ADDENDUM: 4 g EZ gas along with 340 g EZHD was given. 0.8 minutes fluoroscopy time and 76.30 mGy. Electronically Signed by: MASSIEL CHAPPELL M.D. 05/20/20 1108 MASSIEL CHAPPELL M.D. Date Dict: 05/20/201104 MASSIEL CHAPPELL M.D. Date Trans: 05/20/201104 [facility] [phone] cc: DREAD JENSEN M.D., MARC A MD Normal [facility] [id number] 05-10-2020 SARS-CoV-2 Not Detected Normal Not Detected [facility] Comment on above: Result Comment: (NOT E) This nucleic acid amplification test was developed and its performance characteristics determined by [employer]. Nucleic acid amplification tests include PCR and TMA. This test has not been FDA cleared or approved. This test has been authorized by FDA under an Emergency Use Authorization (EUA). This test is only authorized for the duration of time the declaration that circumstances exist justifying the authorization of the emergency use of in vitro diagnostic tests for detection of SARS-CoV-2 virus and/or diagnosis of COVID-19 infection under section 564(b)(1) of the Act, 21 U.S.C. 360bbb-3(b) (1), unless the authorization is terminated or revoked sooner. When diagnostic testing is negative, the possibility of a false negative result should be considered in the context of a patient's recent exposures and the presence of clinical signs and symptoms consistent with COVID-19. An individual without symptoms of COVID- 19 and who is not shedding SARS-CoV-2 virus would expect to have a negative (not detected) result in this assay. Performed At: [facility] [address] [facility] [place] [id number] Óscar Painter MD Ph:[phone] Performed By: #### A COV #### [facility] [address] [place] [address] Electric Switch Tester: Massiel Ng MD Vital Signs Date Time Vital Sign Value Performing Clinician Dewey pope 08-21-2024 10:37-0500 Body height 162.6 cm Billy Mark MD Work Phone: [facility] 08-21-2024 10:37-0500 Body mass index (BMI) [Ratio] 33.47 kg/m2 Billy Mark MD Work Phone: [facility] 08-21-2024 10:37-0500 Body temperature 96.01 [degF] Billy Mark MD Work Phone: [facility] 08-21-2024 10:37-0500 Body weight 88.45 kg Billy Mark MD Work Phone: [facility] 08-21-2024 10:37-0500 Diastolic blood pressure 100 mm[Hg] Billy Mark MD Work Phone: [facility] 08-21-2024 10:37-0500 Heart rate 66 /min Billy Mark MD Work Phone: [facility] 08-21-2024 10:37-0500 Respiratory rate 22 /min Billy Mark MD Work Phone: [facility] 08-21-2024 10:37-0500 SaO2% (BldA) [Mass fraction] 99 % Billy Mark MD Work Phone: [facility] 08-21-2024 10:37-0500 Systolic blood pressure 170 mm[Hg] Billy Mark MD Work Phone: [facility] 07-18-2024 15:47-0500 Body height 162.6 cm Billy Mark MD Work Phone: [facility] 07-18-2024 15:47-0500 Body mass index (BMI) [Ratio] 32.44 kg/m2 Billy Mark MD Work Phone: [facility] 07-18-2024 15:47-0500 Body temperature 96.4 [degF] Billy Mark MD Work Phone: [facility] 07-18-2024 15:47-0500 Body weight 85.73 kg Billy Mark MD Work Phone: [facility] 07-18-2024 15:47-0500 Diastolic blood pressure 100 mm[Hg] Billy Mark MD Work Phone: [facility] 07-18-2024 15:47-0500 Heart rate 73 /min Billy Mark MD Work Phone: [facility] 07-18-2024 15:47-0500 Respiratory rate 22 /min Billy Mark MD Work Phone: [facility] 07-18-2024 15:47-0500 SaO2% (BldA) [Mass fraction] 97 % Billy Mark MD Work Phone: [facility] 07-18-2024 15:470500 Systolic blood pressure 190 mm[Hg] Billy Mark MD Work Phone: [facility] Healthcare Encounters Encounter Date Encounter Type Care Provider Facility Start: 08-21-2024 End: 08-21-2024 [facility] flowsheet Billy Mark MD Work Phone: [facility] Start: 08-21-2024 End: 08-21-2024 [facility] flowsheet Billy Mark MD Work Phone: [facility] Start: 08-21-2024 End: 08-21-2024 Office outpatient visit 25 minutes Billy Mark MD Work Phone: [facility] Comment on above: Benign essential hyp ertension (CMS/HCC) (Primary Dx); Chronic heart failure with preserved ejection fraction (HFpEF) (CMS/HCC); Stress reaction; Pulmonary hypertension (CMS/HCC); Class 1 obesity due to excess calories without serious comorbidity with body mass index (BMI) of 33.0 to 33.9 in adult; Breast cancer screening by mammogram; Colon cancer screening Start: 08-21-2024 End: 08-21-2024 ambulatory BILLY MARK Not Available Start: 07-25-2024 End: 07-25-2024 Clinisync Result Encounter Billy Mark MD Work Phone: [facility] External Department Unsolicited Start: 07-25-2024 End: 07-25-2024 Clinisync Result Encounter Billy Mark MD Work Phone: [facility] External Department Unsolicited Start: 07-18-2024 End: 07-18-2024 Office outpatient new 45 minutes Billy Mark MD Work Phone: [facility] Comment on above: Benign essential hyp ertension (CMS/HCC) (Primary Dx); Stress reaction; Class 1 obesity due to excess calories without serious comorbidity with body mass index (BMI) of 32.0 to 32.9 in adult; Pulmonary hypertension (CMS/HCC); Annual physical exam; Thyroid nodule (CMS/HCC) Start: 07-18-2024 End: 07-18-2024 ambulatory BILLY NADERER Not Available Start: 07-18-2024 End: 07-18-2024 Bamboo flowsheet Billy Mark MD Work Phone: [facility] Start: 07-18-2024 End: 07-18-2024 Bamboo flowsheet Billy Mark MD Work Phone: [facility] Start: 07-18-2024 End: 07-18-2024 Patient encounter procedure Billy Mark MD Work Phone: [facility] Start: 07-06-2024 End: 07-06-2024 Emergency department patient visit Wilner Madina Gaurav Facility:[facility] Start: 06-29-2024 End: 06-29-2024 Emergency department patient visit TEVIN Jacquelyn BC [facility] Start: 04-22-2024 End: 04-22-2024 Office outpatient visit 25 minutes Elias Upton MD Work Phone: [facility] Comment on above: Other rosacea (Prima ry Dx); Seborrheic keratosis, inflamed; Post-inflammatory hyperpigmentation Start: 04-22-2024 End: 04-22-2024 ambulatory ELIAS UPTON Not Available Start: 04-22-2024 End: 04-22-2024 Bamboo flowsvinh Upton MD Work Phone: [facility] Start: 04-22-2024 End: 04-22-2024 Bamboo flowsvinh Upton MD Work Phone: [facility] Start: 09-08-2023 Chart abstracting Elias smith MD Work Phone: [facility] Start: 09-04-2023 End: 09-04-2023 ambulatory ELIAS UPTON Not Available Start: 08-02-2022 End: 08-02-2022 ambulatory CLIF VALERIE Facility:[facility] Start: 03-14-2022 End: 03-14-2022 ambulatory CLIF VALERIE Facility:[facility] Start: 08-03-2021 End: 10-30-[address] DOCTOR DANIELSON Facility:[facility] Start: 07-05-2021 End: 07-06-2021 Unknown MD MORRIS HOUSTON Facility:[facility] Start: 07-05-2021 End: 07-06-2021 ambulatory BILLY MARK Facility:[facility] Start: 09-30-2020 End: 10-01-2020 Patient encounter procedure ALIZA [facility] Start: 09-30-2020 End: 09-30-2020 Subsequent hospital visit by physician LADY RODRIGUEZ DOCTOR Start: 09-23-2020 End: 09-24-2020 Patient encounter procedure ALIZA [facility] Start: 09-23-2020 End: 09-23-2020 Subsequent hospital visit by physician LADY RODRIGUEZ DOCTOR Start: 09-03-2020 End: 09-04-2020 Patient encounter procedure ALIZA [facility] Start: 09-03-2020 End: 09-03-2020 Subsequent hospital visit by physician LADY RODRIGUEZ DOCTOR Start: 08-19-2020 End: 08-20-2020 Patient encounter procedure ALIZA [facility] Start: 08-19-2020 End: 08-19-2020 Subsequent hospital visit by physician LADY RODRIGUEZ DOCTOR Start: 08-06-2020 End: 08-07-2020 Patient encounter procedure ALIZA [facility] Start: 08-06-2020 End: 08-06-2020 Subsequent hospital visit by physician LADY RODRIGUEZ DOCTOR Start: 07-29-2020 End: 07-30-2020 Patient encounter procedure LINETTERIGO [facility] Start: 07-29-2020 End: 07-29-2020 Subsequent hospital visit by physician LADY RODRIGUEZ DOCTOR Start: 07-16-2020 End: 07-17-2020 Patient encounter procedure LINETTE MATTHEWAUREA [facility] Start: 07-16-2020 End: 07-16-2020 Subsequent hospital visit by physician [facility] Start: 06-17-2020 End: 06-18-2020 Patient encounter procedure ALIZA [facility] Start: 05-20-2020 End: 05-20-2020 Patient encounter procedure ALIZA [facility] Start: 05-19-2020 End: 05-19-2020 Subsequent hospital visit by physician [facility]MILL[facility] Start: 05-08-2020 End: 05-09-2020 Patient encounter procedure ALIZA [facility] Start: 05-08-2020 End: 05-08-2020 Subsequent hospital visit by physician [facility]MI[facility] Procedures Date Procedure Procedure Detail Performing Clinician Start: 07-25-2024 ALL CBC WITH AUTO DIFF Billy Mark MD Work Phone: Start: 04-22-2024 CRYOTHERAPY SKIN LESION Elias Upton MD Work Phone: Start: 07-16-2020 COVID-19 AMBULATORY ARA S MATTHEW Start: 06-17-2020 COVID-19 AMBULATORY ARA S MATTHEW Start: 05-20-2020 Electrocardiogram Start: 05-09-2020 COVID-19 AMBULATORY ARA S MATTHEW Start: 01-09-2020 Mammography Elias smith MD Work Phone: Plan of Treatment Date Care Activity Detail Author Start: 06-19-2025 Lipid panel Lipid screen [facility]- [place], [place] Start: 10-30-2024 End: 10-30-2024 Patient encounter procedure 10/30/2024 10:30 AM EDT Office Visit [facility] [address] [place] [id number] Billy Mark MD [address] [place] [id number] [facility] Start: 09-03-2024 End: 09-03-2024 Patient encounter procedure 09/03/2024 10:00 AM EST Office Visit [facility] [address] [place] [address] Elias Upton MD [address] [place] [address] [place] [address] [facility] Start: 08-21-2024 End: 10-19-2025 MG Breast - bilateral Screening Bilateral screening mammogram Imaging Routine Breast cancer screening by mammogram Expected: 08/21/2024, Expires: 10/19/2025 [facility] Work Phone: Comment on above: Expected: 08/21/2024 , Expires: 10/19/2025 Start: 08-21-2024 End: 08-21-2025 Noninvasive colorectal cancer DNA and occult blood screening [Presence] in Stool Cologuard colon cancer screening Lab Routine Colon cancer screening Expected: 08/21/2024 (Approximate), Expires: 08/21/2025 [facility] Comment on above: Expected: 08/21/2024 (Approximate), Expires: 08/21/2025 Start: 08-21-2024 End: 08-21-2024 Patient encounter procedure [facility] Comment on above: Arrived Start: 07-18-2024 End: 07-18-2024 Patient encounter procedure 07/18/2024 3:45 PM EST Office Visit [facility] [address] [place] [id number] Billy Mark MD [address] [place] [phone] Arrived [facility] Comment on above: Arrived Start: 07-18-2024 End: 07-18-2025 Basic metabolic 1998 panel - Serum or Plasma Basic metabolic panel Lab Routine Annual physical exam Expected: 07/18/2024 (Approximate), Expires: 07/18/2025 [facility] Comment on above: Expected: 07/18/2024 (Approximate), Expires: 07/18/2025 Start: 07-18-2024 End: 07-18-2025 CBC W Auto Differential panel - Blood CBC and differential Lab Routine Annual physical exam Expected: 07/18/2024 (Approximate), Expires: 07/18/2025 [facility] Comment on above: Expected: 07/18/2024 (Approximate), Expires: 07/18/2025 Start: 07-18-2024 End: 07-18-2026 Echocardiogram 2D complete Echocardiogram 2D complete Echocardiography Routine Pulmonary hypertension (CMS/HCC) Expected: 07/18/2024 (Approximate), Expires: 07/18/2026 [facility] Comment on above: Expected: 07/18/2024 (Approximate), Expires: 07/18/2026 Start: 07-18-2024 End: 07-18-2025 Hemoglobin A1c/Hemoglobin.total in Blood Hemoglobin A1c Lab Routine Annual physical exam Expected: 07/18/2024 (Approximate), Expires: 07/18/2025 [facility] Work Phone: Comment on above: Expected: 07/18/2024 (Approximate), Expires: 07/18/2025 Start: 07-18-2024 End: 07-18-2025 Hepatic function 2000 panel - Serum or Plasma Hepatic function panel Lab Routine Annual physical exam Expected: 07/18/2024 (Approximate), Expires: 07/18/2025 [facility] Comment on above: Expected: 07/18/2024 (Approximate), Expires: 07/18/2025 Start: 07-18-2024 End: 07-18-2025 Lipid 1996 panel - Serum or Plasma Lipid panel Lab Routine Annual physical exam Expected: 07/18/2024 (Approximate), Expires: 07/18/2025 [facility] Comment on above: Expected: 07/18/2024 (Approximate), Expires: 07/18/2025 Start: 07-18-2024 End: 07-18-2025 Thyrotropin [Units/volume] in Serum or Plasma TSH Lab Routine Annual physical exam Expected: 07/18/2024 (Approximate), Expires: 07/18/2025 [facility] Comment on above: Expected: 07/18/2024 (Approximate), Expires: 07/18/2025 Start: 07-18-2024 End: 07-18-2025 US Thyroid gland US thyroid Imaging Routine Thyroid nodule (CMS/HCC) Expected: 07/18/2024, Expires: 07/18/2025 [facility] Comment on above: Expected: 07/18/2024 , Expires: 07/18/2025 Start: 06-13-2024 End: 06-13-2024 Patient encounter procedure 06/13/2024 10:20 AM EST Office Visit [facility] [address] [place] [phone] Elias Upton MD [address] [place] [address] [facility] Start: 04-22-2024 End: 04-22-2024 Patient encounter procedure 04/22/2024 2:35 PM EDT Office Visit [facility] [address] [place] [phone] Elias Upton MD [address] [place] [address] [facility] Comment on above: Arrived Start: 03-31-2024 Influenza vaccination Influenza Vacc ine (#1) [facility] Start: 03-31-2023 Influenza vaccination Influenza Vacc ine (#1) [facility] Start: 01-08-2021 Screening for malign ant neoplasm of breast Mammogram [facility] Start: 03-31-2020 Influenza vaccination Flu vaccine (# 1) [place], [place] Start: 11-21-2011 Screening for malign ant neoplasm of breast Breast cancer screen [place], [place] Start: 11-21-2011 Screening for malign ant neoplasm of colon Colon cancer screen colonoscopy [place], [place] Start: 11-21-2011 Shingles Vaccine (1 of 2) Shingles Vaccine (1 of 2) [place], [place] Start: 2001 Lipid panel Lipid screen [place], [place] Start: 11-21-1991 Screening for malign ant neoplasm of cervix [facility] Start: 1982 Screening for malign ant neoplasm of cervix [facility] Start: 1980 DTaP/Tdap/Td vaccine (1 - Tdap) DTaP/Tdap/Td vaccine (1 - Tdap) [place], [place] Start: 1976 HIV screening HIV screen [facility] [place], [place] Start: 1961 Hepatitis C screening Hepatitis C sc reen [place], [place] Start: 1961 Screening for malign ant neoplasm of colon [facility] End: 08-19-2020 COVID-19 COVID-19 Lab Routine Once for 1 Occurrences starting 08/19/2020 until 08/19/2020 [place] Comment on above: Once for 1 Occurrenc es starting 08/19/2020 until 08/19/2020 COVID-19 [facility] [place] End: 09-03-2020 COVID-19 COVID-19 Lab Routine Once for 1 Occurrences starting 09/03/2020 until 09/03/2020 [place] Comment on above: Once for 1 Occurrenc es starting 09/03/2020 until 09/03/2020 End: 09-23-2020 COVID-19 COVID-19 Lab Routine Once for 1 Occurrences starting 09/23/2020 until 09/23/2020 [facility] Phone: Comment on above: Once for 1 Occurrenc es starting 09/23/2020 until 09/23/2020 End: 05-09-2020 Covid-19 Ambulatory Covid-19 Ambulatory Lab Routine Once for 1 Occurrences starting 05/09/2020 until 05/09/2020 [place] Comment on above: Once for 1 Occurrenc es starting 05/09/2020 until 05/09/2020 Covid-19 Ambulatory [place], [place] End: 07-16-2020 Covid-19 Ambulatory Covid-19 Ambulatory Lab Routine Once for 1 Occurrences starting 07/16/2020 until 07/16/2020 [place] Comment on above: Once for 1 Occurrenc es starting 07/16/2020 until 07/16/2020 End: 07-29-2020 Covid-19 Ambulatory Covid-19 Ambulatory Lab Routine Once for 1 Occurrences starting 07/29/2020 until 07/29/2020 [place] Comment on above: Once for 1 Occurrenc es starting 07/29/2020 until 07/29/2020 End: 01-07-2021 Covid-19 Ambulatory Covid-19 Ambulatory Lab Routine Once for 1 Occurrences starting 08/06/2020 until 08/06/2020 [facility] [place] Comment on above: Once for 1 Occurrenc es starting 08/06/2020 until 08/06/2020 End: 09-30-2020 Covid-19 Ambulatory Covid-19 Ambulatory Lab Routine Once for 1 Occurrences starting 09/30/2020 until 09/30/2020 [facility] Work Phone: Comment on above: Once for 1 Occurrenc es starting 09/30/2020 until 09/30/2020 Immunizations Immunization Date Immunization Notes Care Provider Fa [facility] 04-30-2020 influenza virus vacc ine, unspecified formulation Elias Upton MD Work Phone: [facility] Payers Date Payer Category Payer Self-pay 2023 [facility] BCBS [id number] 2021 Unknown 2014 Unknown [id number] 1960 Unknown [id number] 2.840.1.358663.3.579.2 .175 1961 Unknown [id number] 2.840.1.826695.3.579.2 .175 1961 Unknown [id number] 2.840.1.182927.3.579.2 .175 1961 Unknown [id number] 2.16.840.1.094312.3.579.2 .175 1961 Unknown [id number] 2.16.840.1.552167.3.579.2 .175 1961 Unknown [id number] 2.16.840.1.702606.3.579.2 .175 1961 Unknown [id number] 2.16.840.1.984325.3.579.2 .175 1961 Unknown [id number] 2.16.840.1.524614.3.579.2 .175 1961 Unknown [id number] 2.16.840.1.783948.3.579.2 .175 1961 Unknown [id number] 2.16.840.1.390580.3.579.2 .175 1961 Unknown [id number] 2.16.840.1.974257.3.579.2 .196 1961 Unknown [id number] 2.16.840.1.298407.3.579.2 .196 1961 Unknown [id number] 2.16.840.1.992226.3.579.2 .593 1961 Unknown [id number] 2.16.840.1.639324.3.579.2 .593 1961 Unknown [id number] 2.16.840.1.655998.3.579.2 .593 1961 Unknown [id number] 2.16.840.1.239182.3.579.2 .1286 1960 Unknown [id number] 2.16.840.1.374212.3.579.2 .1259 1960 Unknown [id number] 2.16.840.1.128849.3.579.2 .1259 1961 Unknown [id number] 2.16.840.1.219040.3.579.2 .1259 1961 Unknown [id number] 2.16.840.1.603497.3.579.2 .1259 1959 Unknown [id number] 1959 Unknown [id number] Unknown [id number] 2.16.840.1.379750.3.579.2 .531 Social History Date Type Detail Facility Tobacco smoking stat [facility] Unknown if ever smoked [facility] [place] Start: 1960 Sex Assigned At Not on file [facility] [place], [place] Start: 09-08-2023 Tobacco smoking stat [facility] Ex-smoker [facility] End: 07-31-2014 History of tobacco use Current smoker [facility] End: 07-31-2014 History of tobacco use Cigarette Smoker [facility] Start: 09-08-2023 Tobacco use and exposure Smoke less tobacco non-user [facility] Start: 09-08-2023 End: 08-21-2024 Alcohol intake Lifetime non-drinker (finding) [facility] Start: 09-04-2023 End: 07-15-2024 History of Social function [facility] Start: 09-04-2023 End: 07-15-2024 Tobacco use panel [facility] How often do you nee d to have someone help you when you read instructions, pamphlets, or other written material from your doctor or pharmacy [SILS] Never [facility] Do you belong to any clubs or organizations such as mormonism groups, unions, fraternal or athletic groups, or school groups? No [facility] Are you now , , , , never or living with a partner? [facility] How often to you hav e a drink containing alcohol? Never [facility] Do you feel stress - tense, restless, nervous, or anxious, or unable to sleep at night because your mind is troubled all the time - these days [OSQ] To some extent [facility] (I/We) worried wheth er (my/our) food would run out before (I/we) got money to buy more. Never true [facility] History of Present illness Narrative 08-21-2024 Billy Mark MD - 08/21/2024 11:09 AM Hiro Mark MD - 08/21/2024 11:08 AM Hiro Mark MD - 08/21/2024 11:08 AM Hiro Makr MD - 08/21/2024 11:08 AM EST Note Date & Type Note Facility 08-21-2024 History of Presen t illness Narrative Associated Problem(s): Class 1 obesity due to excess calories without serious comorbidity with body mass index (BMI) of 33.0 to 33.9 in adult Weight loss indicated. Associated Problem(s): Pulmonary hypertension (CMS/HCC) Mild increased pressure on echo. Monitor. Associated Problem(s): Stress reaction Stress improved and monitor. Associated Problem(s): Chronic heart failure with preserved ejection fraction (HFpEF) (CMS/HCC) Echo with normal EF. Continue medication and monitor. Associated Problem(s): Benign essential hypertension (CMS/HCC) BP remains elevated and adjust medication. Continue to monitor PRN. Discussed DASH diet. Images from the original note were not included. Subjective Patient ID: Radha Drake is a 63 y.o. female who presents for Follow-up (1m). Follow up HTN, CHF, and stress. Started losartan last visit and tolerating well. BP remains elevated. Checking BP at home and often elevated. BP 170/100 today. Edema controlled with medication. Mild swelling at end of day and if on feet a lot. Edema improved in am and with elevation. Overall stress improved. Back to work and functioning well. Not stressed out or overwhelmed. Weight up 6 pounds since last visit. Not active and no regular exercise. Review of Systems Respiratory: Negative for cough, shortness of breath and wheezing. Cardiovascular: Negative for chest pain and palpitations. Gastrointestinal: Negative for abdominal pain, diarrhea, nausea and vomiting. Genitourinary: Negative for dysuria. Objective Physical Exam Constitutional: General: She is not in acute distress. Appearance: Normal appearance. HENT: Head: Normocephalic. Right Ear: Tympanic membrane normal. Left Ear: Tympanic membrane normal. Eyes: Extraocular Movements: Extraocular movements intact. Pupils: Pupils are equal, round, and reactive to light. Cardiovascular: Rate and Rhythm: Normal rate and regular rhythm. Heart sounds: No murmur heard. No friction rub. No gallop. Pulmonary: Effort: Pulmonary effort is normal. Breath sounds: Normal breath sounds. No wheezing, rhonchi or rales. Abdominal: General: Bowel sounds are normal. There is no distension. Palpations: Abdomen is soft. Tenderness: There is no abdominal tenderness. There is no guarding or rebound. Musculoskeletal: Cervical back: Neck supple. Right lower leg: No edema. Left lower leg: No edema. Neurological: Mental Status: She is alert. Assessment/Plan Problem List Items Addressed This Visit Class 1 obesity due to excess calories without serious comorbidity with body mass index (BMI) of 33.0 to 33.9 in adult Weight loss indicated. Benign essential hypertension (CMS/HCC) - Primary BP remains elevated and adjust medication. Continue to monitor PRN. Discussed DASH diet. Relevant Medications losartan-hydroCHLOROthiazide (Hyzaar) 50-12.5 MG tablet Stress reaction Stress improved and monitor. Pulmonary hypertension (CMS/HCC) Mild increased pressure on echo. Monitor. Chronic heart failure with preserved ejection fraction (HFpEF) (CMS/HCC) Echo with normal EF. Continue medication and monitor. Other Visit Diagnoses Breast cancer screening by mammogram Relevant Orders Bilateral screening mammogram Colon cancer screening Relevant Orders Cologuard colon cancer screening documented in this encounter [facility] History of Present illness Narrative 07-18-2024 Billy Mark MD - 07/18/2024 4:31 PM Hiro Mark MD - 07/18/2024 4:31 PM Hiro Makr MD - 07/18/2024 4:30 PM Hiro Mark MD - 07/18/2024 4:30 PM EST Note Date & Type Note Facility 07-18-2024 History of Presen t illness Narrative Associated Problem(s): Thyroid nodule (CMS/HCC) Nodule on CT and check US. Associated Problem(s): Stress reaction Severe symptoms since of brother and difficult to adjust. Off work 06/29-07/31 and return 08/01/24. Associated Problem(s): Pulmonary hypertension (CMS/HCC) CT with changes of pulmonary HTN and check echo. Associated Problem(s): Class 1 obesity due to excess calories without serious comorbidity with body mass index (BMI) of 32.0 to 32.9 in adult Weight loss indicated. Associated Problem(s): Benign essential hypertension (CMS/HCC) BP elevated and start losartan. Monitor BP PRN. Images from the original note were not included. Subjective Patient ID: Radha Drake is a 63 y.o. female who presents for Follow-up ([facility] er f/u). ER follow up from 06/29 for elevated BP and anxiety. Brother 06/15 and difficult to adjust. He lived in [place] and was on hospice. Patient drove their mom to go see him and when got back home had call patient passed. At work didn't feel right. Very shaky and heart racing. Lightheaded and off balance. Nurse checked vitals and BP 180/130 and pulse 120. To ER and BP and pulse elevated. Checked labs and low magnesium. Glucose 204. Given IV ativan. CTA negative for PE but changes of pulmonary HTN. Also noted thyroid nodule. Overall mood improving. Adjusting and not as stressed. Still down and sad. Interacting better with others. notices improvement in symptoms. Not monitoring BP but 190/100 today Review of Systems Respiratory: Negative for cough, shortness of breath and wheezing. Cardiovascular: Negative for chest pain and palpitations. Gastrointestinal: Negative for abdominal pain, diarrhea, nausea and vomiting. Genitourinary: Negative for dysuria. Objective Physical Exam Constitutional: General: She is not in acute distress. Appearance: Normal appearance. HENT: Head: Normocephalic. Right Ear: Tympanic membrane normal. Left Ear: Tympanic membrane normal. Eyes: Extraocular Movements: Extraocular movements intact. Pupils: Pupils are equal, round, and reactive to light. Cardiovascular: Rate and Rhythm: Normal rate and regular rhythm. Heart sounds: No murmur heard. No friction rub. No gallop. Pulmonary: Effort: Pulmonary effort is normal. Breath sounds: Normal breath sounds. No wheezing, rhonchi or rales. Abdominal: General: Bowel sounds are normal. There is no distension. Palpations: Abdomen is soft. Tenderness: There is no abdominal tenderness. There is no guarding or rebound. Musculoskeletal: Cervical back: Neck supple. Right lower leg: No edema. Left lower leg: No edema. Neurological: Mental Status: She is alert. Assessment/Plan Problem List Items Addressed This Visit Class 1 obesity due to excess calories without serious comorbidity with body mass index (BMI) of 32.0 to 32.9 in adult Weight loss indicated. Benign essential hypertension (CMS/HCC) - Primary BP elevated and start losartan. Monitor BP PRN. Relevant Medications losartan (Cozaar) 25 MG tablet Annual physical exam Relevant Orders Hemoglobin A1c Basic metabolic panel CBC and differential Hepatic function panel Lipid panel TSH Stress reaction Severe symptoms since of brother and difficult to adjust. Off work 06/29-07/31 and return 08/01/24. Pulmonary hypertension (CMS/HCC) CT with changes of pulmonary HTN and check echo. Relevant Orders Echocardiogram 2D complete Thyroid nodule (CMS/HCC) Nodule on CT and check US. Relevant Orders US thyroid documented in this encounter [facility] History of Present illness Narrative 04-22-2024 Elias Upton MD - 04/22/2024 2:35 PM EDT Note Date & Type Note Facility 04-22-2024 History of Presen t illness Narrative Images from the original note were not included. Lesions: Location: left spencer Duration: months Quality: denies pain, denies itch, denies bleeding Modifying factors: none Associated symptoms: red, lytton Treatments: none, states it started about 6 months ago, stated that it was a scab like lytton. She states that she did put on Fluorouracil 5% on it and it seemed to have cleared up after using this. Lesion # 2: Location: face Duration: months Quality: denies pain, denies itch, denies bleeding Modifying factors: none Associated symptoms: none Treatments: none Rash Location: face Duration: months Severity: moderate Quality: denies itch, denies burning Modifying Factors: none Associated symptoms: redness Treatments tried: none Current treatments: moisturizers All pertinent medical history, medications, and allergies were reviewed. General Exam: alert , oriented to person, place, and time , normal affect, well appearing Accompanied by Mom A focused exam completed based on patient reported problems, see below: 1. Other rosacea (2) Head - Anterior (Face), Nose Mid face erythema with telangiectasias +/- scattered inflammatory papules/pustules. Flaring today The patient was informed that rosacea a chronic condition that can be controlled but not cured. The appearance of redness and pimples can often be improved with a low dose antibiotic or topical medications. The patient was informed that telangiectasia is common and can be improved with laser treatment Start metronidazole 0.75 % cream once a day. Follow up in 2 months. Related Medications metroNIDAZOLE (Metrocream) 0.75 % cream Apply thin layer to face once daily 2. Seborrheic keratosis, inflamed (3) Right Frontal Scalp, Right Temporal Scalp (2) [place] and brown stuck on verrucous scaly papule with surrounding erythema The patient was informed that symptomatic seborrheic keratoses are benign growths that become inflamed, itchy, tender, traumatized, caught on clothing, or bleed. Symptomatic lesions can be treated with cryotherapy or curretage. Thicker lesions treated with cryotherapy may require more than one treatment. The patient was instructed to notify the office if abnormal redness or tenderness develops at the treatment site. Cryotherapy today, see procedure note. Diagnosis: Inflamed seborrheic keratosis Indication: Inflamed Consent: Verbal consent was obtained and risks were discussed, including, but not limited to risks of scarring, darker or sugar sampler pigmentary changes, recurrence, incomplete removal and infection. Method: Liquid nitrogen was used to treat the lesion(s) with two 5-10 second freeze-thaw cycles Number of lesions treated: 3 Post-procedure instructions: Instructions were given orally and in writing. The office will be contacted if the lesion fails to resolve despite treatment, or if a side effect develops such as abnormal crusting, scabbing, redness or tenderness Cryotherapy, skin lesion - Right Frontal Scalp, Right Temporal Scalp (2) 3. Post-inflammatory hyperpigmentation Left Lower Leg - Anterior No evidence of residual disease at treated site Notify office for recurrence. Next Visit: 2 months rosacea documented in this encounter [facility] History and physical note 06-29-2021 Note Date & Type Note Facility 06-29-2021 Note Chief Complaint Left shoulder pain History of Present Illness PATIENT : 1960 PLANNED PROCEDURE: Left shoulder arthroscopy with RCR vs debridement, SAD, possible BT DATE OF PROCEDURE: 07/06/2021 LOCATION OF PROCEDURE: [facility] [place] SURGEON: Morris Houston MD INFORMED CONSENT: Obtained by and on file at [facility] 60 year-old established female patient of BVO diagnosed with left shoulder full-thickness supraspinatus tear with retraction and atrophy, possible SLAP tear, and AC joint OA. Patient elected to proceed with surgical intervention. Review of Systems Constitutional Head Nose Mouth Throat Cardio/Respiratory Hematologic Chills: No Headache: No Shortness of Breath: No History of DVT: No Fever: No Sore Throat: No Chest Pain: No History of Claudication: No Ear Pain: No Palpitation: No History of Aneurysm: No History of Gangrene: No Genitourinary Musculoskeletal Psychiatric Vascular Burning: No Muscle Weakness: Yes Anxiety: No Blood Disorder: No Pain: No Joint Pain: Yes Depression: No Numbness: No Gastrointestinal Dermatology Rheumatologic Problems: No Rash: No History of Rheumatic Arthritis: No Pain: No Pruritus: No History of Gout: No History of Lupus: No [1] Physical Exam Vitals & Measurements HR: 87 (Peripheral) BP: 144/93 HT: 162.56 cm WT: 94.4 kg WT: 94.4 kg (Dosing) BMI: 35.72 [2] General- A&Ox3, NAD, pleasant, cooperative HEENT- Normocephalic, PERRLA, EOMI, (-) d/c E/E/N/M; full neck ROM Cardiovascular- RRR, S1 & S2, (-) m/g/r/c, pulses equal bilaterally Pulmonary- CTA bilaterally, symmetrical excursion, (-) w/r/r Musculoskeletal- intact ROM, intact strength, intact gait Skin- intact without rashes/wounds/defect Neurovascular- intact/appropriate for stated age Additional Vitals No qualifying data available. Assessment/Plan 1. Left rotator cuff tear 2. Osteoarthritis of left AC (acromioclavicular) joint METS: 4-10 ASA Physical Status Class: II S-MPM Class: I Low risk for elective level 3 procedure. This patient is a candidate for surgery at a same day surgery center. Further medical clearance from patient's primary care provider and/or specialists may be obtained based on risk stratification, exam findings, past medical history, and current medications. Problem List/Past Medical History Ongoing Environmental allergies Left rotator cuff tear Historical Anemia Mumps Procedure/Surgical History Gastric Sleeve Tubal Ligation Medications Inpatient No active inpatient medications Home DME, See Instructions multivitamin, 1 tabs, Oral, Daily Allergies penicillin (Rash) sulfa drugs (Rash) Social History Alcohol Current, Wine, Liquor, 1-2 times per week Substance Abuse Denies All Tobacco Former smoker, quit more than 5 years ago Use:. Cigarettes, Started age 15 Years. Stopped age 54 Years. Family History Atrial fibrillation: Mother. Cancer: Grandmother (P). Diabetes mellitus: Mother and Grandmother (M). Heart disease: Mother and Father. Hypothyroidism: Mother. Lab Results Microbiology - Current Encounter No qualifying data available. [1] Office Visit Note; Morris Houston MD 06/07/2021 16:02 EST [2] Office Visit Note; Morris Houston MD 06/07/2021 16:02 EST Electronically signed by Maylin Shearer PA-C 06/29/21 12:41 EST [facility] System Evaluation note Note Date & Type Note Facility Evaluation note Diagnosis Other rosacea- Primary Seborrheic keratosis, inflamed Post-inflammatory hyperpigmentation Dyschromia, unspecified documented in this encounter [facility] Evaluation note Note Date & Type Note Facility Evaluation note Diagnosis Benign essential hypertension (CMS/HCC)- Primary Essential hypertension, benign Stress reaction Unspecified acute reaction to stress Class 1 obesity due to excess calories without serious comorbidity with body mass index (BMI) of 32.0 to 32.9 in adult Pulmonary hypertension (CMS/HCC) Other chronic pulmonary heart diseases Annual physical exam Routine general medical examination at a health care facility Thyroid nodule (CMS/HCC) Nontoxic uninodular goiter documented in this encounter [facility] Evaluation note Note Date & Type Note Facility Evaluation note Diagnosis Benign essential hypertension (CMS/HCC)- Primary Essential hypertension, benign Stress reaction Unspecified acute reaction to stress Class 1 obesity due to excess calories without serious comorbidity with body mass index (BMI) of 32.0 to 32.9 in adult Pulmonary hypertension (CMS/HCC) Other chronic pulmonary heart diseases Annual physical exam Routine general medical examination at a health care facility Thyroid nodule (CMS/HCC) Nontoxic uninodular goiter Benign essential hypertension (CMS/HCC)- Primary Essential hypertension, benign Chronic heart failure with preserved ejection fraction (HFpEF) (CMS/HCC) Stress reaction Unspecified acute reaction to stress Pulmonary hypertension (CMS/HCC) Other chronic pulmonary heart diseases Class 1 obesity due to excess calories without serious comorbidity with body mass index (BMI) of 33.0 to 33.9 in adult Breast cancer screening by mammogram Colon cancer screening Special screening for malignant neoplasms, colon documented in this encounter [facility] Summary Purpose Family History No Family History Records FoundNo Family History Records FoundNo Family History Records FoundNo Family History Records FoundNo Family History Records FoundNo Family History Records FoundNo Family History Records Found Advance Directives No Advanced Directives Records FoundNo Advanced Directives Records FoundNo Advanced Directives Records FoundNo Advanced Directives Records FoundNo Advanced Directives Records FoundNo Advanced Directives Records FoundNo Advanced Directives Records Found Additional Source Comments INFORMATION SOURCE (unrecogn ized section and content) DATE CREATED AUTHOR 08/27/2020 [facility] DATE CREATED AUTHOR AUTHOR'S ORGANIZ ATION 10/03/2020 [facility] DATE CREATED AUTHOR AUTHOR'S ORGANIZ ATION 11/19/2021 [facility] DATE CREATED AUTHOR AUTHOR'S ORGANIZ ATION 08/02/2022 [facility] DATE CREATED AUTHOR AUTHOR'S ORGANIZ ATION 07/04/2024 [facility] DATE CREATED AUTHOR AUTHOR'S ORGANIZ ATION 07/16/2024 [facility] DATE CREATED AUTHOR AUTHOR'S ORGANIZ ATION 08/23/2024 [facility] [employer] Care Teams (unrecognized sec tion and content) [facility] [employer] Relationship Specialty Start Date End Date Billy Mark MD [address] [place] [id number] PCP - General Family Medicine 07/09/24 [facility] [employer] Relationship Specialty Start Date End Date Billy Mark MD [address] [place] [phone] PCP - General Family Medicine 07/09/24 [facility] [employer] Relationship Specialty Start Date End Date Billy Mark MD [address] [place] [phone] PCP - General Family Medicine 07/09/24 [employer] Relationship Specialty Start Date End Date Billy Mark MD [address] [place] [phone] PCP - General Family Medicine 07/09/24 [employer] Relationship Specialty Start Date End Date Billy Mark MD [address] [place] [phone] PCP - General Family Medicine 07/09/24 Reason for Visit (unrecogniz ed section and content) Reason Comments Follow-up [facility] f/u Reason Comments Follow-up 1m FOR RECORDS PERTAINING TO PATIENTS WHO ARE OR HAVE BEEN ENROLLED IN A CHEMICAL DEPENDENCY/SUBSTANCEABUSE PROGRAM, SOME INFORMATION MAY BE OMITTED. This clinical summary was aggregated from multiple sources. Caution should be exercised in using it in the provision of clinical care. This summary normalizes information from multiple sources, and as a consequence, information in this document may materially change the coding, format and clinical context of patient data. In addition, data may be omitted in some cases. CLINICAL DECISIONS SHOULD BE BASED ON THE PRIMARY CLINICAL RECORDS. [email or web address] provides no warranty or guarantee of the accuracy or completeness of information in this document.
== END 2024-10-04 10:06 | disposition home or self-care (01) ==
LOC: MAMMO 10:05
PROVIDERS: PCP Family Medicine; Visit Provider Family Medicine
DX: Z12.31 Encounter for screening mammogram for malignant neoplasm of breast (principal)
CPT/HCPCS: 77063; 77067